=== PATIENT | male | born 1960 | race Caucasian/White ===

== ENCOUNTER 2017-07-06 02:51 | Emergency (ER) | payer OTHER ==
[~2017-07-06] VITALS: Ht 170.1 cm; Wt 99.8 kg
[~2017-07-06 02:51] MED LIST: ASPIRIN81 MG PO; ATORVASTATIN CA40 M1 PO; BACTRIM DS 8001 TA1 PO; COZAAR25 M1 PO; Cimetidine300 MG PO; EFFIENT10 M1 PO; HYDROCODONE BIT1 T11 PO; LISINOPRIL10 M1 PO; LISINOPRIL5 MG PO; METOPROLOL SUCC50 M1 PO; NICODERM C14 MG/241 T
[2017-07-06 03:29] LABS: HEMATOCRIT 45.2 % (42.0-52.0); HEMOGLOBIN 15.5 g/dl (14.0-18.0); MEAN CELL VOLUME 92.8 fl (80.0-94.0); MEAN CORPUSCULAR HGB 31.8 pg (27.0-31.0); MEAN CORPUSCULAR HGB CONC 34.3 g/dl (33.0-37.0); PLATELET COUNT AUTOMATED 228 10*3/uL (130-400); RED BLOOD COUNT 4.87 10*6/uL (4.50-5.90); RED CELL DISTRI WIDTH 13.3 % (0-14.5); WHITE BLOOD COUNT 12.6 10*3/uL (4.8-10.8)
[2017-07-06 03:39] LABS: ACT PARTIAL THROMBO TIME 20.1 SECONDS (20.8-31.5); INTERNATIONAL NORM RATIO 0.9 (2.0-3.5)
[2017-07-06 03:46] LABS: ALBUMIN 3.5 gm/dl (3.1-4.5); ALKALINE PHOSPHATASE 215 U/L (45-117); BUN 20 mg/dl (7-24); CHLORIDE 104 mmol/L (98-107); CPK 93 U/L (39-308); POTASSIUM 3.1 mmol/L (3.5-5.1); SGOT/AST 22 IU/L (3-35); SGPT/ALT 30 U/L (12-78); SODIUM 139 mmol/L (136-145); TOTAL PROTEIN 7.9 gm/dL (6.4-8.2)
[2017-07-06 03:48] LABS: CKMB 0.6 ng/ml (0.5-3.6)
[2017-07-06 03:49] LABS: ATYPICAL LYMPHS 6 % (0-0); PLATELET SUFFICIENCY NORMAL (NORMAL); TOTAL CELLS COUNTED 100 #CELLS
[2017-07-06 03:51] LABS: TROPONIN I < 0.015 ng/ml (<0.045)
== END 2017-07-06 05:51 | disposition short-term general hospital (02) ==
LOC: ED 02:51
PROVIDERS: Emergency Medicine Emergency Medical Services
DX: I61.9 Nontraumatic intracerebral hemorrhage, unspecified (principal); F17.200 Nicotine dependence, unspecified, uncomplicated; I25.10 Atherosclerotic heart disease of native coronary artery without angina pectoris; E78.5 Hyperlipidemia, unspecified; I10 Essential (primary) hypertension; I25.2 Old myocardial infarction; Z79.82 Long term (current) use of aspirin; Z79.899 Other long term (current) drug therapy; Z88.0 Allergy status to penicillin; Z88.6 Allergy status to analgesic agent

== ENCOUNTER → 2017-10-23 | Outpatient (CLI) | payer OTHER | END | disposition home or self-care (01) | LOC: US 12:48 | DX: M54.5 Low back pain (principal) ==

== ENCOUNTER 2017-10-25 04:56 | Emergency (ER) | payer OTHER ==
[~2017-10-25] VITALS: Ht 177.8 cm; Wt 90.7 kg
[2017-10-25] MEDS ORDERED: AMANTADINE HCL100 M1 PO (05:13)
[2017-10-25] MEDS ORDERED: AMLODIPINE BESY10 MG PO (05:14)
[2017-10-25] MEDS ORDERED: BACLOFEN20 M1 PO ×2 (05:14→05:22)
[2017-10-25] MEDS ORDERED: CAPOTEN12.5 MG PO (05:15)
[2017-10-25] MEDS ORDERED: VOLTAREN100 GM T (05:16)
[2017-10-25] MEDS ORDERED: NEURONTIN800 MG PO (05:17)
[2017-10-25] MEDS ORDERED: Fluoxetine20 MG/5 ML PO (05:17)
[2017-10-25] MEDS ORDERED: PANTOPRAZOLE SO40 MG PO (05:18)
[2017-10-25] MEDS ORDERED: LAXATIVE PEG 3510 GM PO (05:19)
[2017-10-25] MEDS ORDERED: TRAZODONE50 MG PO (05:20)
[2017-10-25] MEDS ORDERED: MELATONIN3 MG PO (05:20)
[2017-10-25] MEDS ORDERED: MAALOX ADVANCE355 M1 PO (05:21)
[2017-10-25 05:24] LABS: BASO # 0.1 10*3/uL (0.0-0.1); BASO % 1.1 % (0.0-1.0); EOS # 0.4 10*3/uL (0.0-0.4); EOS % 6.5 % (1.0-4.0); HEMATOCRIT 38.3 % (42.0-52.0); HEMOGLOBIN 12.7 g/dl (14.0-18.0); LYMPH % 34.9 % (27.0-41.0); MEAN CELL VOLUME 91.8 fl (80.0-94.0); MEAN CORPUSCULAR HGB 30.5 pg (27.0-31.0); MEAN CORPUSCULAR HGB CONC 33.2 g/dl (33.0-37.0); MEAN PLATELET VOLUME 10.1 fl (9.6-12.3); MONO # 0.7 10*3/uL (0.1-1.0); MONO % 11.6 % (3.0-9.0); NEUT # 2.6 10*3/uL (2.3-7.9); NEUT % 45.7 % (47.0-73.0); PLATELET COUNT AUTOMATED 185 10*3/uL (130-400); RED BLOOD COUNT 4.17 10*6/uL (4.50-5.90); RED CELL DISTRI WIDTH 13.1 % (0-14.5); WHITE BLOOD COUNT 5.7 10*3/uL (4.8-10.8)
[2017-10-25 05:40] LABS: ALBUMIN 3.2 gm/dl (3.1-4.5); ALKALINE PHOSPHATASE 178 U/L (45-117); BUN 13 mg/dl (7-24); CHLORIDE 105 mmol/L (98-107); CREATININE 0.63 mg/dL (0.70-1.30); POTASSIUM 3.7 mmol/L (3.5-5.1); SGOT/AST 13 IU/L (3-35); SGPT/ALT 21 U/L (12-78); SODIUM 140 mmol/L (136-145); TOTAL PROTEIN 7.1 gm/dL (6.4-8.2)
[2017-10-25 08:53] LABS: BILIRUBIN NEGATIVE (NEGATIVE); BLOOD 1+ (NEGATIVE); CLARITY CLEAR (CLEAR); COLOR YELLOW (YELLOW); GLUCOSE NEGATIVE (NEGATIVE); KETONE NEGATIVE (NEGATIVE); LEUKO ESTERASE NEGATIVE (NEGATIVE); NITRITE NEGATIVE (NEGATIVE); PH 5.5 (5.0-9.0); SPECIFIC GRAVITY 1.015 (1.005-1.030); UROBILINOGEN 0.2 E.U./dl (0.2-1.0)
[2017-10-25 08:59] LABS: MUCOUS TRACE
== END 2017-10-25 09:31 | disposition home or self-care (01) ==
LOC: ED 04:56
PROVIDERS: Emergency Medicine
DX: R10.9 Unspecified abdominal pain (principal); F17.200 Nicotine dependence, unspecified, uncomplicated; I25.10 Atherosclerotic heart disease of native coronary artery without angina pectoris; E78.5 Hyperlipidemia, unspecified; I10 Essential (primary) hypertension; I25.2 Old myocardial infarction; Z95.5 Presence of coronary angioplasty implant and graft; Z90.89 Acquired absence of other organs; Z79.899 Other long term (current) drug therapy; Z79.82 Long term (current) use of aspirin; Z88.0 Allergy status to penicillin; Z88.6 Allergy status to analgesic agent; Z86.73 Personal history of transient ischemic attack (TIA), and cerebral infarction without residual deficits

== ENCOUNTER → 2017-10-30 | Outpatient (CLI) | payer OTHER ==
[~2017-10-30] MED LIST changes: +AMANTADINE HCL100 M1 PO; +AMLODIPINE BESY10 MG PO; +BACLOFEN20 M1 PO; +CAPOTEN12.5 MG PO; +Fluoxetine20 MG/5 ML PO; +LAXATIVE PEG 3510 GM PO; +MAALOX ADVANCE355 M1 PO; +MELATONIN3 MG PO; +NEURONTIN800 MG PO; +PANTOPRAZOLE SO40 MG PO; +TRAZODONE50 MG PO; +VOLTAREN100 GM T
[2017-10-30 14:28] LABS: BILIRUBIN NEGATIVE (NEGATIVE); BLOOD 1+ (NEGATIVE); CLARITY CLEAR (CLEAR); COLOR YELLOW (YELLOW); GLUCOSE NEGATIVE (NEGATIVE); KETONE NEGATIVE (NEGATIVE); LEUKO ESTERASE NEGATIVE (NEGATIVE); NITRITE NEGATIVE (NEGATIVE); PH 5.5 (5.0-9.0); UROBILINOGEN 0.2 E.U./dl (0.2-1.0)
[2017-10-30 14:35] LABS: BASO # 0.1 10*3/uL (0.0-0.1); BASO % 0.9 % (0.0-1.0); EOS # 0.4 10*3/uL (0.0-0.4); EOS % 5.1 % (1.0-4.0); HEMATOCRIT 41.6 % (42.0-52.0); HEMOGLOBIN 14.3 g/dl (14.0-18.0); LYMPH # 2.3 10*3/uL (1.3-4.4); LYMPH % 32.7 % (27.0-41.0); MEAN CELL VOLUME 89.8 fl (80.0-94.0); MEAN CORPUSCULAR HGB 30.9 pg (27.0-31.0); MEAN CORPUSCULAR HGB CONC 34.4 g/dl (33.0-37.0); MEAN PLATELET VOLUME 10.6 fl (9.6-12.3); MONO # 0.6 10*3/uL (0.1-1.0); MONO % 8.1 % (3.0-9.0); NEUT # 3.7 10*3/uL (2.3-7.9); NEUT % 52.9 % (47.0-73.0); PLATELET COUNT AUTOMATED 223 10*3/uL (130-400); RED BLOOD COUNT 4.63 10*6/uL (4.50-5.90); RED CELL DISTRI WIDTH 13.2 % (0-14.5); WHITE BLOOD COUNT 6.9 10*3/uL (4.8-10.8)
[2017-10-30 14:48] LABS: BACTERIA 1+; EPITHELIAL CELLS 0-2; WBC 0-2 wbc/hpf (0-5)
[2017-10-30 14:56] LABS: BUN 15 mg/dl (7-24); CHLORIDE 102 mmol/L (98-107); POTASSIUM 3.7 mmol/L (3.5-5.1); SODIUM 140 mmol/L (136-145)
[2017-10-30 15:23] LABS: ACT PARTIAL THROMBO TIME 23.2 SECONDS (20.8-31.5); INTERNATIONAL NORM RATIO 0.9 (2.0-3.5)
== END | disposition home or self-care (01) ==
LOC: CARD 13:00 → LAB 13:02
PROVIDERS: Internal Medicine
DX: Z01.818 Encounter for other preprocedural examination (principal); R94.31 Abnormal electrocardiogram [ECG] [EKG]; I10 Essential (primary) hypertension; I61.9 Nontraumatic intracerebral hemorrhage, unspecified; Z98.890 Other specified postprocedural states

== ENCOUNTER 2018-04-23 18:28 | Emergency (ER) | payer OTHER, MEDICAID ==
[~2018-04-23] VITALS: Wt 88.5 kg
--- NOTE | ~2018-04-23 | EKG ---
[place], [place] ELECTROCARDIOGRAM REPORT NAME: DANIEL KEENAN UNIT #: [id number] ROOM: DOCTOR: EPIPHANY DRAFT REPORT BIRTHDATE: [birth year] [facility] Test Date: 2018-04-23 Test Time: 19:16:47 Pat Name: DANIEL KEENAN Department: ER Room: 2 Gender: M Oxyhydrogen Welder: Anais Bustillo : 1960 Requested By: IRMA CASPER Order Number: [id number] Reading MD: Gregor Delgadillo MD Measurements Intervals [place] Rate: 68 P: 47 ID: [id number] QRS: -4 QRSD: 116 T: 120 QT: 387 QTc: 412 Interpretive Statements Sinus rhythm Nonspecific intraventricular conduction delay Borderline low voltage, extremity leads Nonspecific T abnormalities, lateral leads Electronically Signed On 04-28-2018 4:19:34 PDT by Gregor Delgadillo MD CM:EKGRPT:ELECTROCARDIOGRAM REPORT [id number] IRMA BROWNE DRAFT REPORT IRMA CASPER MD
[2018-04-23] MEDS ORDERED: AMLODIPINE BESY10 MG PO (18:37)
[2018-04-23] MEDS ORDERED: BACLOFEN5 MG PO (18:37)
[2018-04-23] MEDS ORDERED: AMANTADINE HCL100 M1 PO (18:37)
[2018-04-23] MEDS ORDERED: ASPIRIN81 M1 PO (18:38)
[2018-04-23] MEDS ORDERED: CAPOTEN12.5 MG PO (18:38)
[2018-04-23] MEDS ORDERED: PROZAC40 M1 PO (18:38)
[2018-04-23] MEDS ORDERED: NEURONTIN600 MG PO (18:38)
[2018-04-23 19:24] LABS: BASO # 0.1 10*3/uL (0.0-0.1); BASO % 0.6 % (0.0-1.0); EOS # 0.3 10*3/uL (0.0-0.4); EOS % 2.6 % (1.0-4.0); HEMATOCRIT 39.4 % (42.0-52.0); HEMOGLOBIN 13.4 g/dl (14.0-18.0); LYMPH # 2.3 10*3/uL (1.3-4.4); LYMPH % 21.9 % (27.0-41.0); MEAN CELL VOLUME 92.1 fl (80.0-94.0); MEAN CORPUSCULAR HGB 31.3 pg (27.0-31.0); MEAN PLATELET VOLUME 10.2 fl (9.6-12.3); MONO # 0.8 10*3/uL (0.1-1.0); MONO % 7.6 % (3.0-9.0); NEUT # 6.9 10*3/uL (2.3-7.9); PLATELET COUNT AUTOMATED 225 10*3/uL (130-400); RED BLOOD COUNT 4.28 10*6/uL (4.50-5.90); RED CELL DISTRI WIDTH 14.8 % (0-14.5); WHITE BLOOD COUNT 10.3 10*3/uL (4.8-10.8)
[2018-04-23 19:33] LABS: INTERNATIONAL NORM RATIO 0.9 (2.0-3.5)
[2018-04-23 19:42] LABS: ALBUMIN 3.4 gm/dl (3.1-4.5); ALKALINE PHOSPHATASE 176 U/L (45-117); BUN 22 mg/dl (7-24); CHLORIDE 106 mmol/L (98-107); CREATININE 1.11 mg/dL (0.70-1.30); POTASSIUM 3.8 mmol/L (3.5-5.1); SGOT/AST 20 IU/L (3-35); SGPT/ALT 51 U/L (12-78); SODIUM 141 mmol/L (136-145); TOTAL PROTEIN 7.2 gm/dL (6.4-8.2)
[2018-04-23 19:51] LABS: ETHYL ALCOHOL < 3.0 mg/dl (<3); TROPONIN I < 0.015 ng/ml (<0.045)
== END 2018-04-24 01:57 | disposition short-term general hospital (02) ==
LOC: ED 18:28
PROVIDERS: Emergency Medicine Emergency Medical Services
DX: R56.9 Unspecified convulsions (principal); I25.10 Atherosclerotic heart disease of native coronary artery without angina pectoris; E78.5 Hyperlipidemia, unspecified; I10 Essential (primary) hypertension; F17.200 Nicotine dependence, unspecified, uncomplicated; Z86.73 Personal history of transient ischemic attack (TIA), and cerebral infarction without residual deficits; Z88.0 Allergy status to penicillin; Z88.6 Allergy status to analgesic agent; Z79.899 Other long term (current) drug therapy; Z79.82 Long term (current) use of aspirin

== ENCOUNTER → 2019-04-29 | Outpatient (CLI) | payer OTHER ==
[~2019-04-29] MED LIST changes: +ASPIRIN81 M1 PO; +BACLOFEN5 MG PO; +NEURONTIN600 MG PO; +PROZAC40 M1 PO
== END | disposition home or self-care (01) ==
LOC: US 02-26 09:30
DX: I10 Essential (primary) hypertension (principal); K76.0 Fatty (change of) liver, not elsewhere classified

== ENCOUNTER 2019-09-25 12:48 | Inpatient (IN) | payer OTHER ==
[~2019-09-25] VITALS: Ht 177.8 cm; Wt 90.7 kg
[2019-09-25 13:26] LABS: BASO # 0.1 10*3/uL (0.0-0.1); EOS # 0.2 10*3/uL (0.0-0.4); EOS % 2.3 % (1.0-4.0); HEMATOCRIT 50.4 % (42.0-52.0); HEMOGLOBIN 16.9 g/dl (14.0-18.0); LYMPH # 3.5 10*3/uL (1.3-4.4); LYMPH % 41.7 % (27.0-41.0); MEAN CELL VOLUME 95.6 fl (80.0-94.0); MEAN CORPUSCULAR HGB 32.1 pg (27.0-31.0); MEAN CORPUSCULAR HGB CONC 33.5 g/dl (33.0-37.0); MEAN PLATELET VOLUME 10.9 fl (9.6-12.3); MONO # 0.5 10*3/uL (0.1-1.0); MONO % 6.2 % (3.0-9.0); NEUT # 4.1 10*3/uL (2.3-7.9); NEUT % 48.7 % (47.0-73.0); PLATELET COUNT AUTOMATED 221 10*3/uL (130-400); RED BLOOD COUNT 5.27 10*6/uL (4.50-5.90); RED CELL DISTRI WIDTH 13.7 % (0-14.5); WHITE BLOOD COUNT 8.4 10*3/uL (4.8-10.8)
[2019-09-25 13:42] LABS: ALBUMIN 3.6 gm/dl (3.1-4.5); ALKALINE PHOSPHATASE 196 U/L (45-117); BUN 15 mg/dl (7-24); CHLORIDE 105 mmol/L (98-107); CREATININE 1.08 mg/dL (0.70-1.30); POTASSIUM 3.3 mmol/L (3.5-5.1); SGOT/AST 27 IU/L (3-35); SGPT/ALT 56 U/L (12-78); SODIUM 138 mmol/L (136-145); TOTAL PROTEIN 8.3 gm/dL (6.4-8.2)
[2019-09-25 13:43] LABS: ETHYL ALCOHOL < 3.0 mg/dl (<3)
--- NOTE | 2019-09-25 13:48 | NUR ---
PT GIVEN URINAL TO OBTAIN URINE SPECIMAN. PT STATES "I DO NOT HAVE TO GO RIGHT NOW BUT WILL SOON."
[2019-09-25 15:02] LABS: BILIRUBIN NEGATIVE (NEGATIVE); BLOOD TRACE-INTACT (NEGATIVE); CLARITY CLOUDY (CLEAR); COLOR YELLOW (YELLOW); GLUCOSE NEGATIVE (NEGATIVE); KETONE 1+ (NEGATIVE); LEUKO ESTERASE NEGATIVE (NEGATIVE); NITRITE NEGATIVE (NEGATIVE); UROBILINOGEN 0.2 E.U./dl (0.2-1.0)
[2019-09-25 15:08] LABS: URINE AMPHETAMINES < 1000 (1000ng/ml); URINE BARBITURATES < 200 (200ng/ml); URINE BENZODIAZEPINES < 200 (200ng/ml); URINE CANNABINOIDS (THC) > 50 (50ng/ml); URINE COCAINE < 300 (300ng/ml); URINE METHADONE < 300 (300ng/ml); URINE OPIATES < 300 (300ng/ml)
[2019-09-25 15:09] LABS: BACTERIA 1+; MUCOUS TRACE; RBC 0-2 rbc/hpf (0-2); WBC 0-2 wbc/hpf (0-5)
--- NOTE | 2019-09-25 15:09 | NUR ---
REPORT FROM AIDEN GIBSON PT RESTING IN ROOM AT BEDSIDE NO DISTRESS NOTED
[2019-09-25 15:11] LABS: URINE PHENCYCLIDINE < 25 (25ng/ml)
--- NOTE | 2019-09-25 16:13 | NUR ---
PT RESTING IN BED IN VIEW OF NURSES DESK NO DISTRESS NOTED CALL LIGHT IN REACH
--- NOTE | 2019-09-25 16:38 | NUR ---
PSYCHIATRIC ASSESSMENT: MET WITH CLIENT TO ASSESS FOR NEEDS AND SUICIDE RISK, CLIENT REPORTS THAT HE HAS BEEN VERY DEPRESSED SINCE JUN 2017, WHEN HE HAD A STROKE, WHICH AFFECTED HIS LEFT SIDE, HE HAS NO USEOF HIS LEFT ARM AND HE HAS A BRACE ON HIS LEG, HE WALKS WITH A CANE. 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 HE REPORTS SUICIDAL THOUGHTS WITH A PLAN TO USE A KNIFE. HE SAID THAT LAST NIGHT HE GOT VERY UPSET AND HE COULDNT TAKE IT , HE STARTED THROWING THINGS AND HIS WAS AFRAID SO SHE CALLED THE POLICE AND THEY CAME AND TALKED TO HIM, TODAY SHE MADE HIM COME TO THE ER. HE HAS NO PREVIOUS MENTAL HEALTH CARE, OUTPATIENT OR INPATIENT, HE IS PRESCRIBED MEDICAL MARIJUANA BY HIS PCP, DR Harjit CANNON. HE SAID THIS HELPS HIM TO CALM DOWN, HE IS REPRESENTLY OUT OF IT. HE SAID HE IS ANXIOUS, DENIES ANY NONE EVIDENT ANY SENSORY DISTURBAND OR DELUSIONS. CLIENT SAID HE IS WORRIED ABOUT HIS MARRIAGE AND DOESNT KNOW IF THEY ARE GOING TO MAKE IT, THEY HAVE BEEN 23 YEARS. HE REPORTS HE FEELS THAT HE IS LOSING EVERYTHING. HIS SLEEP IS POOR AND APPETITE IS GOOD. HE HAS CHILDREN AT HOME, A SON AGE 22, DAUGHTERS AGE 20, 15 AND 5. HE IS HIS OWN PERSON. WE TALKED AT LENGTH AND HE IS WILLING TO BE ADMITTED TO A MENTAL HEALTK UNIT. I DISCUSSED WITH DR MORENO AND HIS NURSE. I WILL REFER HIM TO INPATIENT PSYCH.
[2019-09-25 16:53] VITALS: BP 161/99
--- NOTE | 2019-09-25 16:53 | NUR ---
TELEPHONE CALL TO THE [facility] HERE, MADE THE REFERRAL AND WILL WAIT FOR THEM TO CALL ME BACK WITH THEIR DECISION.
--- NOTE | 2019-09-25 16:56 | NUR ---
PT REQUESTED SOMETHING FOR PAIN DR MORENO NOTIFIED
--- NOTE | 2019-09-25 17:10 | NUR ---
[facility] IS GOING TO ACCEPT PT THEY WILL BE DOWN TO GET PT IN THE NEXT 20 MIN OR SO
--- NOTE | 2019-09-25 17:25 | NUR ---
DALLAS Felecia NURSE HERE TO ELECTRONIC TESTER PT.
[2019-09-25] MEDS ORDERED: EFFEXOR XR150 M1 PO (17:26)
[2019-09-25] MEDS ORDERED: DEPAKOTE DR500 MG PO (17:26)
--- NOTE | 2019-09-25 17:32 | NUR ---
KEENANDANIEL KELLER a 59 year old M admitted via wheel chair from the EMERGENCY ROOM as a voluntary admission. Arrived on unit at 1732. ALLERGIES: IBUPROFEN, PCN. Vital signs are: [id number] 138/100. The client signed the following forms with stated understanding: Authorization For The Release of Medical Information, Clothing List, Consent to Voluntary Admission and Hospitalization, Consent and Release Forms/Receipt of Rights, Acknowledgement of Advance Directive Information, Behavioral Health Consent Form, and Informed Consent of Medications. Admitted under the services of [facility]. A search was conducted and hazardous articles were removed. Client was oriented to the unit. DALLAS RIZZO
--- NOTE | 2019-09-25 17:47 | NUR ---
SPOKE WITH DR CANNON AT [phone], RE: PT ADMISSION AND MEDICAL MEDS NEEDING COMPLETED. HOME MEDS REVIEWED WITH AND VERBAL ORDERS RECEIVED TO CONTINUE MEDS. WITNESSED BY 2ND RN WON JEAN-BAPTISTE. NO FURTHER ORDERS AT THIS TIME.
[2019-09-25 17:49] VITALS: BP 137/88
[2019-09-25 18:20] VITALS: BP 137/88
[2019-09-25 20:40] VITALS: BP 138/100
--- NOTE | 2019-09-25 21:01 | NUR ---
PATIENT COMPLAINING OF ALL OVER PAIN, RATING 3/10. PRN TYLENOL 650MG GIVEN PO AT THIS TIME.
--- NOTE | 2019-09-25 21:33 | NUR ---
DR. CANNON NOTIFIED OF MANUAL BP 138/100. EVENING BP MEDICATION GIVEN. VERBAL ORDER: RECHECK BP IN 1 HR.
[2019-09-25 21:45] VITALS: BP 126/82
--- NOTE | 2019-09-25 21:45 | NUR ---
RECHECK BP MANUAL 126/82.
--- NOTE | 2019-09-25 22:01 | NUR ---
NO FURTHER COMPLAINTS OF PAIN. PATIENT RESTING IN BED WITH EYES CLOSED. PRN TYLENOL EFFECTIVE.
--- NOTE | 2019-09-26 05:37 | NUR ---
PATIENT SLEPT 8 HOURS OF INTERRUPTED SLEEP THROUGHOUT SHIFT. Q 15 MINUTE CHECKS MAINTAINED. 24 HR chart check completed.
[2019-09-26 06:26] LABS: HEMATOCRIT 48.1 % (42.0-52.0); HEMOGLOBIN 15.9 g/dl (14.0-18.0); MEAN CELL VOLUME 96.8 fl (80.0-94.0); MEAN CORPUSCULAR HGB CONC 33.1 g/dl (33.0-37.0); MEAN PLATELET VOLUME 11.3 fl (9.6-12.3); PLATELET COUNT AUTOMATED 198 10*3/uL (130-400); RED BLOOD COUNT 4.97 10*6/uL (4.50-5.90); RED CELL DISTRI WIDTH 13.7 % (0-14.5); WHITE BLOOD COUNT 8.7 10*3/uL (4.8-10.8)
[2019-09-26 06:33] LABS: ALBUMIN 3.3 gm/dl (3.1-4.5); BUN 17 mg/dl (7-24); CHLORIDE 106 mmol/L (98-107); CHOLESTEROL 248 mg/dL (<200); CREATININE 0.85 mg/dL (0.70-1.30); POTASSIUM 3.4 mmol/L (3.5-5.1); SGOT/AST 22 IU/L (3-35); SGPT/ALT 48 U/L (12-78); SODIUM 139 mmol/L (136-145); TOTAL PROTEIN 7.4 gm/dL (6.4-8.2); TRIGLYCERIDES 466 mg/dl (<150)
[2019-09-26 06:42] LABS: ALKALINE PHOSPHATASE 177 U/L (45-117); HDL CHOLESTEROL 32 mg/dl (40-60)
[2019-09-26 06:54] LABS: TOTAL CELLS COUNTED 100 #CELLS
[2019-09-26 06:55] LABS: PLATELET SUFFICIENCY NORMAL (NORMAL)
[2019-09-26 07:31] LABS: VITAMIN D, 25-HYDROXY 29.9 ng/mL (30-100)
[2019-09-26 08:01] VITALS: BP 154/78
--- NOTE | 2019-09-26 09:39 | NUR ---
DR. CANNON NOTIFIED OF POTASSIUM LEVEL, VERBAL ORDER FOR POTASSIUM 40MEQ NOW AND BMP IN AM. UPDATED ON MORNING BP, ROUNTINE MEDICATIONS GIVEN.
--- NOTE | 2019-09-26 09:46 | NUR ---
PATIENT COMPLAINING OF LEFT LOWER EXTREMITY PAIN, RATING 5/10. PRN TYLENOL 650MG PO GIVEN AT THIS TIME.
--- NOTE | 2019-09-26 10:46 | NUR ---
PATIENT IN DINING ROOM PARTICIPATING IN GROUP SESSION, NO FURTHER VOICED COMPLAINTS OF PAIN. PRN TYLENOL EFFECTIVE.
--- NOTE | 2019-09-26 12:48 | NUR ---
DR. CANNON ON UNIT TO ASSESS PATIENT.
--- NOTE | 2019-09-26 12:49 | NUR ---
AM GROUP/EXERCISE/MUSIC/COLOR BY NUMBER PT ATTENDED AND PARTICIPATED IN ALL GROUP ACTIVITY. PT DID COMPLAIN ABOUT HIP PAIN AND MOVED TO A MORE COMFY CHAIR TO REST LEG. PT OBSERVED AND SANG ALONG TO MUSIC (ESPECIALLY HERMAN ANDRE). PT EXPRESSED NO S.I. OR ANGRY OUTBURSTS AT THIS TIME. PT WILL CONTINUE TO ATTEND AND PARTICIPATE IN FUTRUE GROUP SESSIONS.
--- NOTE | 2019-09-26 13:07 | NUR ---
psychosocial hx completed this date.
--- NOTE | 2019-09-26 13:27 | NUR ---
PT ON UNIT, ADVISED THAT PT IS USED TO WALKING AROUND AT HOME WITH HIS CANE AND ONLY USING THE WHEELCHAIR WHEN NECESSARY. PT IS UNABLE TO USE A WALKER D/T LEFT SIDED PARALYSIS. PT REQUESTING TO USE CANE ON UNIT. SPOKE WITH CHARGE NURSE AND U DIRECTOR, ADVISED OF SITUATION. PER DIRECTOR LONG PT IS NOT HAVING VIOLENT OUTBURSTS AND CANE REAMINS LOCKED UP WHILE NOT IN USE PT MAY AMBULATE THROUGHOUT UNIT WITH CANE WITH STAFF PRESENT. AND PT UPDATED.
--- NOTE | 2019-09-26 17:42 | NUR ---
P: DEPRESSED MOOD I: ONE ON ONE FOR EMOTIONAL SUPPORT, ENCOURAGEMENT TO ASSIST WTIH ACTIVITIES OF HILDA LIVING. R: EFFECTIVE. PATIENT IS ALERT TO PERSON, PLACE, TIME AND SITUATION; ABLE TO VOICE NEEDS. LT MEMORY DEFICITS, SHORT TERM MEMORY GAPS. MOOD IS DEPRESSED. DENIES ANY HALLUCINATIONS, DELUSIONS, HI/SI. RECEIVED TYLENOL FOR PAIN. MEDICAITON COMPLIANT WITH EDUCATION PROVIDED. Q 15 MINUTE SAFETY CHECKS. INTERACTIVE WITH STAFF AND PARTICIPATES IN GROUP SESSEION. PATIENT ABLE TO USE CANE WITH STAFF PRESENT. 1 PERSON ASSIST WITH ACTIVITIES OF DAILY LIVING, CONTINENT OF BOWEL AND BLADDER. SET UP FOR MEALS, INTAKES ARE GOOD WITH ADEQUATE FLUIDS. P: CONTINUE TO MONITOR FOR SUICIDAL IDEATIONS, MOOD, PAIN MANAGEMENT AND ENCOURAGE INDEPENDENCE OF ACTIVITIES OF DAILY LIVING. PROVIDE ONE ON ONE FOR EMOTIONAL SUPPORT, ENCOURAGE GROUP PARTICIPATION AND CONTRACT FOR SAFETY WHEN NEEDED.
--- NOTE | 2019-09-26 18:04 | NUR ---
PATIENT COMPLAINING OF LEFT EXTREMITY PAIN, RATING PAIN 5/10. PRN NORCO 5/325MG PO GIVEN AT THIS TIME.
[2019-09-26 20:14] VITALS: BP 136/81
--- NOTE | 2019-09-27 00:19 | NUR ---
24 HR chart check completed.
--- NOTE | 2019-09-27 05:35 | NUR ---
Patient slept approx. 7 hours throughout shift. Q 15 minute safety checks continued and maintained.
--- NOTE | 2019-09-27 06:20 | NUR ---
Medicated with Leslie po prn for c/o pain in shoulder,hip,and leg rating 10/10. Will monitor effectiveness.
[2019-09-27 06:41] LABS: BUN 13 mg/dl (7-24); CHLORIDE 107 mmol/L (98-107); CREATININE 0.71 mg/dL (0.70-1.30); POTASSIUM 3.8 mmol/L (3.5-5.1); SODIUM 141 mmol/L (136-145)
[2019-09-27 07:53] VITALS: BP 137/80
--- NOTE | 2019-09-27 08:00 | NUR ---
Treatment Plan meeting was held with Dr. Baird, RC Joiner, RN, AT, ELECTRO MECHANICAL SOLAR TECHNICIAN-S and Director University. Plan for discharge Fri/ with return home.
--- NOTE | 2019-09-27 09:27 | NUR ---
ON UNIT FROM PODIATRY TO SEE PT AT THIS TIME.
--- NOTE | 2019-09-27 14:40 | NUR ---
Occupational therapy orders received and OT evaluation completed in full on floor three. Patient precautions include fall risk, WC/cane use, L sided hemiparesis, impulsive, and L KAFO. Per OT evmagy, OT recommends patient return home with a follow up with an floor covering printer for his KAFO. Please see OT eval for further details of L KAFO. Patient complexity is high, 44475. Thank you for the referral. Court Steiner OTR/L
--- NOTE | 2019-09-27 14:40 | NUR ---
PATIENT RETURN WITH NURSING STAFF AND SECURITY FROM RADIOLOGY. MENTAL HEALTH WORKER REPORTED THAT PATIENT HAS SKIN TEAR ARE LEFT FOREARM. PATIENT REPOSITION LEFT ARM BY USING RIGHT HAND AND BUMPED ARM ON WHEELCHAIR. PATIENT IS AWARE, DR NAYAK NOTIFIED WITH NEW TREATMENT ORDER AND ACCOUNT DEVELOPER NOTIFIED.
--- NOTE | 2019-09-27 14:40 | NUR ---
Pt returned from ultrasound, mental health worker who escorted pt off the unit to and from ultrasound reported that while pt was re-positioning his left arm with his right hand, pt sustained a small skin tear measuring 0.2cm x 0.3cm x <0.1cm to the left forearm. No drainage noted. No foul odor noted. Surrounding skin is red but intact. Pt denies pain. Pt reports he often picks at his skin. Area cleansed, dry dressing applied. Pt's on unit during visitation and aware. Dr. Black, resident physician working with Dr. Olivia notified with wound care orders received.
--- NOTE | 2019-09-27 15:58 | NUR ---
PATIENT HAS WHITE, SCALY DRY SKIN TO LEFT ANKLE, AREA IS PINK AND BLANCHABLE. PATIENT WEARS LEG BRACE TO EXTREMITY. THERAPY EXPRESSED CONCERNS OF BRACE NOT FITTING PROPERLY. WOUND CARE NURSE CONSULTED ON PREVENTATIVE TREATMENT. DR. RAMOS NOTIFIED AND TREATMENT ORDERS IN PLACE FOR SKIN PROTECTION.
--- NOTE | 2019-09-27 16:44 | NUR ---
PHYSICAL THERAPY Lenny completed high level of complexity 03946 full report to follow recomend home with f/u with home health and financial accounting analyst for brace. Pt's LLE/foot not fitting down into KAFO red/pink area along lateral malleoli blanchable with callus area. Spoke w Francy not normally pink or red but did have callus. states brace not fitting well at home but that she would put on and pt wearing t/o day. Has had brace since 2017 last seen by/worked with therapy over a year ago. Spoke with [place] financial accounting analyst Fortunato Guardado over phone explaining situation. Feels it would be better to follow up as an outpatient due to how old brace is and recomending if fit issue to wear brace for transfers but not to amb/wear t/o day if skin issues a problem as well as not adding padding to skin under brace as will just increase pressure. Spoke with Francy reg above she will be in today and will look at ankle explained situation and given name/phone number of financial accounting analyst for follow up as outpatient.Spoke w [facility] nurse Jenny [place]inas financial accounting analyst recomendation. Spoke w Annalee conservation planner to contact (per her request) for update on discharge. Loida Schaefer PT
--- NOTE | 2019-09-27 17:50 | NUR ---
P: DEPRESSED MOOD I: ONE ON ONE FOR EMOTIONAL SUPPORT, ENCOURAGED TO PARTICIPATE IN GROUP SESSION. R: EFFECTIVE. PATIENT IS ALERT TO PERSON, PLACE, TIME AND SITUATION; ABLE TO VOCIE NEEDS. MOOD IS DEPRESSED WITH FLAT AFFECT. DENIES ANY HALLUCINATIONS, DELUSIONS, HI/SI. PATIENT RECIEVED PAIN MEDICAITONS EARLY THIS MORNING AND TAKING ROUTINE MEDICATION FOR PAIN MANAGEMENT. MEDICATION COMPLAINT WITH EDUCATION PROVIDED. Q 15 MINUTE SAFETY CHECKS MAINTAINED. INTERACTIVE WITH STAFF AND OTHER PATIENTS. PARTICIPATED IN GROUP SESSION. 1-2 PERSON ASSIST WITH ACTIVITIES OF DAILY LIVING, CONTINENT OF BOWEL AND BLADDER, SET UP FOR MEALS, INTAKES ARE GOOD WITH ADEQUATE FLUIDS. UP IN WHEELCHAIR. CONTINUE TO MONITOR FOR AGGRESSION, SUICIDAL IDEATIONS. PROVIDE ONE ON ONE FOR EMOTIONAL SUPPORT, ENCOURAGED TO PARTICIPATE IN GROUP SESSIONS, CONTRACT FOR SAFETY NEEDED. P:
--- NOTE | 2019-09-27 17:53 | NUR ---
PM GROUP/EXERCISE/BEADING/LEAISURE PT IN ATTENDANCE AND PARTICIPATED IN EXERCISE BUT SOON TAKEN DOWN FOR AN ULTRA SOUND. PT DID NOT RETURN TO DAYROOM UNTIL GROUP ALMOST PVER. PT WILL CONTINUE TO ATTEND AND BE ENCOURAGED TO PARTICIPATE IN FUTURE GROUP SESSIONS.
[2019-09-27 20:00] VITALS: BP 114/80
--- NOTE | 2019-09-27 20:43 | NUR ---
EVENING/STORY PT IN ATTENDNACE AND PARTICIPATED IN STORY DISCUSSION. PT PLEASANT AND ON TASK WITH NO S.I. OR ANGRY OUTBURSTS EXPRESSED AT THIS TIME. PT WILL CONTINUE TO ATTEND ANDPARTICIPATE IN FUTRUE GROUP SESSION TO BEST OF PT ABILITY.
--- NOTE | 2019-09-27 23:17 | NUR ---
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 "I CAN'T DO NONE OF THAT NOW" "I CAN'T DO ANYTHING, MY IS GONNA LEAVE ME BECAUSE I DON'T DO ANYTHING" SPOKE WITH PT ABOUT HOW TO CHANGE THE PATTERN HE HAS BECAME INVOLVED IN. PT STATED HE IS ANGRY BECAUSE HE CAN'T MOVE HIS LEFT SIDE. DISCUSS THE THINGS HE STILL CAN DO, WHAT HE IS CAPABLE OF. PT ENCOURAGED TO THINK ABOUT POSITIVES HE CAN HOLD ONTO INSTEAD OF THE NEGATIVE. PT STARTED TO TALK ABOUT MODIFICATIONS OF HOW TO HOLD A FISHING POLE, AND MOVING THE GRILL SOMEWHERE TO HELP HIS COOK MORE. P: PT TO THINK ABOUT GOALS OF IMPROVEMENTS HE CAN DO FOR HIMSELF, HOW TO TALK WITH HIS AND ATTEMPT TO BE A "TEAM" "LIKE THEY USED TO BE". NO SIHI OR DELUSIONS. PT AWARE OF NEED OF CHANGE AND STATED THAT BEING HERE HAS HELPED HIM TO SEE HOW HE NEEDS TO CHANGE HIS THOUGHT PROCESS. CONTINUE WITH 15 MIN CHECKS PROMOTE INDEPENDANCE
--- NOTE | 2019-09-28 05:28 | NUR ---
PT SLEPT 4 HOURS BROKEN SLEEP
--- NOTE | 2019-09-28 06:50 | NUR ---
Pt complaint of pain to left side of hip and head, stated he felt achey this am. given norco per request
--- NOTE | 2019-09-28 07:00 | NUR ---
DANIEL KEENAN [id number] Please refer to the physician's history and physical for past medical history, comorbid conditions, and allergies. Diagnosis: MAJOR DEPRESSION RECURRENT SEVERE Efe Score: 19,LOW OR NO RISK WOUND DESCRIPTIONS: Wound Number: 1 Location of the wound: left forearm Type of wound: skin tear Thickness: Partial Size: 0.4cm x 0.8cm x <0.1cm Tunneling: none Undermining: none Sinus Tract: none Presence of Exudate: none Amount: None Color: Red Odor: None Periwound Skin Appearance: Normal Wound edges: approximated Pain (associated with wound): none at time of assessment How does patient state this happened? pt states that he is unsure how this happened but noticed it upon his return from thyroid testing Left ankle and doral apsect of left foot red and blanchable areas noted at time of assessment. No open areas noted at time of assessment, no drainage noted at time of assessment Surface the patient is resting on: Proform SKIN PREVENTION RECOMMENDATION: 1. Pressure redistribution support surface as appropriate 2. Elevate heels 3. Remove boots/TEDS every shift and reapply 4. Head of bed 30 degrees as tolerated 5. Assess nutrition and hydration 6. Manage moisture 7. Avoid the use of containment devices while in bed 8. Use absorptive products on surfaces limit layers of linens on bed 9. Turn and reposition every 1-2 hours in bed and every 1 hour in chair as tolerated 10. Weight shifts every 15 minutes while up in chair 11. Offloading with pillows or device to keep heels elevated off bed 12. Monitor skin at least every shift 13. Inspect under medical devices twice a day WOUND TREATMENT RECOMMENDATIONS: Continue skin tear guidelines to left forearm. Clarify dressing change orders: Apply sureprep to left ankle and dorsal aspect of left foot BID allow time to dry then cover with optifoam gentle. Heel raiser pro boots to bilateral heels while in bed for prevention.
--- NOTE | 2019-09-28 07:50 | NUR ---
OT NOTE Patient was supine in bed upon arrival and was agreeable to OT treatment. Nursing, rehab nursing tech, and PT were all present in room. Patient presented with a left lateral ankle foam bandage due to having a ankle sore. Nursing and the patient were provided with education on donning the KAFO brace for functional transfers and removing during seated activity and at rest to maximize patient safety and prevent further left lateral ankle breakdon. The nurse, Mahi, and the patient both verbalized a good understanding. Patient performed bed mobility with Min Ax2 to EOB, where his dynamic seated balance was challenged during scooting. Patient required Max A to don/doff brace during activity and was encouraged to participate in completing the straps with fair carryover. Patient completed further lower body dressing tasks seated EOB. Patient stating "see I can't do this", with encouragement and verbal cues for prashanth-dressing techniques, patient was able to complete with Mod A. With the KAFO on, patient used his SC and completed EOB to chair transfers with Min A-CGAx2 with cues for safety and safe hand placement. When seated in the chair, the KAFO was removed and placed on the bed. Patient's SC was returned to nursing to be put away. Patient demonstrated independent wheelchair mobility into the hallway to the dining room. Prior to breakfast in the dining room, patient completed a handwashing activity to the left hand with Min A and PROM to the digits. OT treatment concluded with the patient seated his wheelchair at the dining room table with milleiu in room. Patient to continue with POC. LIO Landeros/Negra
--- NOTE | 2019-09-28 07:50 | NUR ---
PHYSICAL THERAPY Pt in bed spoke with nurse Mahi PHILLIPS pt has small dressing to L lateral ankle unable to visualize. Ed/updated nurse on concerns for fit of KAFO due to limited ankle ROM, Shoe (laces out for safety) and prior use of hospital sock. Pt now wearing own socks. Ed on use of brace for standing/OOB activities but when sitting in w/c or lying in bed brace off to limit pressure at L lateral ankle. Ed on don/doff of brace in sitting. Supine to sit min assist x 1 sitting at EOB independent. Donned KAFO LLE STS cg x 1 bed to w/c tranfers with cane cg x 1 once pt in w/c removed KAFO shoe back on L foot for protection and positioning. Leg rest adjuted for comfort and alignment per pt "comfortable" pt states his hip had "really been hurting with sitting with the brace on" Nurse present t/o ed to call dept for assist and will keep working w pt for transfers/ROM/strengthing. Pt able to self propel w/c to dining area 100 ft with occ verbal cues. Will follow Loida Schaefer PT
--- NOTE | 2019-09-28 08:00 | NUR ---
Treatment Plan meeting was held with RC Joiner, RN, AT, MARINE GEOLOGIST-S and Hot Plate Plywood Press Operator. Plan for discharge Friday/Friday per Marisel. Pt. will return home at this point.
--- NOTE | 2019-09-28 10:07 | NUR ---
Dr. Black notified of wound care recommendations.
--- NOTE | 2019-09-28 11:41 | NUR ---
CLAUDIA GROUP/EXERCISE AND DONG PT ATTENDED MORNING GROUP THERAPY AND PARTICIPATED IN ALL ACITIVITIES TO THE BEST OF HIS ABILITY. PT EXPRESSED NO SUICIDAL IDEATIONS DURING GROUP BUT DID STATE, "MY IS SICK OF ME. SHE'S HAD ENOUGH"
--- NOTE | 2019-09-28 15:18 | NUR ---
Earlier this afternoon, met with pt individually. Discussed pt's life stressors since his CVA. Pt spoke of the strain that his lasting impairments have had on his marriage and family. Pt admits to becoming frustrated when he is unable to do something and then lashing out at his and children. Discussed the unwanted reinventing of himself. Pt voiced recognition that his has "too much on her" and his want to take some of the burden from her. Pt denies any previous counseling but is willing to participate. Educated pt about counseling. Pt voiced hope that his would want counseling as well. Offered to schedule a family meeting. Pt stated that he would like that and voiced appreciation.
--- NOTE | 2019-09-28 15:33 | NUR ---
PM GROUP PT DID NOT ATTEND AFTERNOON GROUP THERAPY. PT WAS IN BED RESTING
--- NOTE | 2019-09-28 17:43 | NUR ---
P: DEPRESSED MOOD I: 1:1 PROVIDED FOR THERAPEUTIC COMMUNICATION. ENCOURAGED MEDICATION COMPLIANCE. ENCOURAGED INCREASED INTERACTIONS WITH PEERS. ENCOURAGED ATTENDANCE AND PARTICIPATION IN GROUPS. MONITORED BEHAVIORS WITH Q15 MINUTE SAFETY CHECKS. R: MEDICATION COMPLAINT. PT OPEN TO COMMUNICATING WITH PTS HOWEVER DID NOT INTERACT MUCH WITH PEERS. PT ATTENDED AND PARTICIPATED IN GROUP TODAY. NO ADVERSE BEHAVIORS NOTED. P: CONTINUE TO OFFER 1:1 FOR THERAPEUTIC COMMUNICATION. CONTINUE TO ENCOURAGE MEDICATION COMPLIANCE. CONTINUE TO ENCOURAGED INTERACTIONS WITH PEERS AND STAFF AND ATTENDANCE AND PARTICIAPTION IN GROUPS. CONTINUE TO MONITOR BEHAVIORS WITH Q15 MINUTE SAFETY CHECKS. SEE [facility] FLOWSHEET FOR SPECIFIC MONITORING.
[2019-09-28 19:36] VITALS: BP 126/75
--- NOTE | 2019-09-28 21:58 | NUR ---
Patient alert and oriented to person,place,time and situation. Mood depressed. Patient denies SI/HI at this time. No overt s/s of any responding to internal stimuli noted. Patient wrote on paper some postive things he likes about himself. Patient compliant with HS medications without any difficulty. Provided 1:1 for therapeutic communication and emotional support. Plan to continue to encourage medication compliance. Also continue to provide emotional support and therapeutic communication. Will continue to monitor moods/behaviors. Q 15 minute safety checks continued and maintained. See [facility] flowsheet for further documentation.
--- NOTE | 2019-09-29 00:16 | NUR ---
24 HR chart check completed.
--- NOTE | 2019-09-29 05:58 | NUR ---
Patient slept approx. 7 hours throughout shift. Q 15 minute safety checks continued and maintained.
[2019-09-29 07:59] VITALS: BP 135/69
--- NOTE | 2019-09-29 08:20 | NUR ---
PHYSICAL THERAPY Patient seen this am for therapy visit and was supine in bed upon therapist arrival. Patient identified by name / and reports 5/10 chronic L hip pain. Patient transfers supine to sit EOB, MOD A x 1 and presented with increased L LE Gastroc / Hamstring tightness. Patient tolerated prolonged L LE stretching to increase ROM and requires use of L LE KAFO for all transfers ONLY. Patient needs therapist assist to Don / Doff KAFO and completed sit to stand / SPT to w/c with MIN/EDGE GLUE MACHINE TENDER x 1. Patient was very unsteady during pivot phase of transfer and can be a little impulsive at times, demonstrating POOR safety awareness. Patient also very deconditioned with quick onset of fatigue and would greatly benefit from SNF to improve strength, safe transfers / mobility to prevent increased risk of falls. Patient remained in w/c and transported to activity room for a late breakfast under [facility] staff Supervision. Will continue per POC as tolerated, total treatment time 20 minutes. Cory Sánchez, BRANCH MAKER
--- NOTE | 2019-09-29 10:15 | NUR ---
PHYSICAL THERAPY Spoke with FINANCIAL SERVICES EDUCATION CONSULTANT working with pt regarding progress and transfers, presently min assist x 1 with decreased balance, only using LLE KAFO with transfers not ambulating at this time due to fit and skin issues L lateral ankle. Initally pt only to be here a few days and looking to follow up w HH vs outpatient regarding brace however now pt likely not being discharged until next week. Due to brace pt has had limited activity with decline in function and tolerance to activity. Spoke with land use planner on U feel pt would benefit from SNF vs Inpatient rehab stay for brace assessment by bus operator and further PT for amb, balance, stair training to improve functional independence and overall mobility at home. Loida Schaefer PT
--- NOTE | 2019-09-29 10:54 | NUR ---
Spoke with Elian Schaefer PT about the possibility of pt discharging to SNF. Met with pt and discussed SNF. Pt is agreeable if the NF can be local to [place] and will allow his use of medical marijuana. Will also plan to discuss with pt's , per pt's request.
--- NOTE | 2019-09-29 11:41 | NUR ---
AM GROUP PT WAS PRESENT AT THE START OF GROUP BUT LEFT TO LAY DOWN STATING, "MY HIP PAIN IS REAL BAD."
--- NOTE | 2019-09-29 11:45 | NUR ---
Family meeting scheduled tomorrow at 12:30 with pt and his Francy.
[2019-09-29 12:06] LABS: NEURONTIN (GABAPENTIN) 4.4 ug/mL (4.0-16.0)
--- NOTE | 2019-09-29 15:42 | NUR ---
PM GROUP PT ATTENDED AFTERNOON GROUP THERAPY AND PARTICIPATED IN ALL ACITIVITIES. PT WAS TALKATIVE BUT ON TASK. PT EXPRESSED NO SUICIDAL IDEATIONS WHILE IN GROUP
--- NOTE | 2019-09-29 16:24 | NUR ---
Patient was seen by occupational therapist on 09/27/2019 for an OT evaluation. At that time, OT recommended patient return home with HH SN, OT, and PT with continued assist. Secondary to the patient's left KAFO not fitting properly, patient would benefit from a SNF or rehab facility stay to further address and maximize his safety and independence with ADLs, mobility, and transfers. Court Steiner, OTR/L
--- NOTE | 2019-09-29 16:30 | NUR ---
PHYSICAL THERAPY Multiple discussions throughout the day. Spoke with Anika wound care nurse 9:00 regarding pad on L ankle per her/MD recomendation to protect skin to leave in place to protect skin. Per phone conversation w software engineer developer 08:30 only a major concern if brace being left on t/o the day. Presently only using for transfers and taking off. Discussed with Kristie interstate planner reg SNF/rehab rather than home also to look into if software engineer developer able to see pt on BHU if covered. Per software engineer developer would not be able to come out until next week. Met with pt and regarding all of the above and both in agreement for rehab given present situation. Spoke with Mahi/nurse and Pt reg shoes agreeable to have pt wear velcro shoes during day with skin checks every 2 hrs as new shoes and then can replace shoelace in regular shoes to wear w brace and use with transfers. Ed nsg only using brace with white tennis shoes with laces and when off to go to black velcro shoes. Also concersn with LLE on leg rest as with black shoes smaller profile leg tends to ER and rest on metal part of w/c discusse w nsg and allowed to use towel roll for pressure relief and posittioning as well as ed pt. Will cont to follow and monitor Loida Schaefer PT
--- NOTE | 2019-09-29 16:51 | NUR ---
P: DEPRESSED MOOD I: 1:1 PROVIDED FOR THERAPEUTIC COMMUNICATION. ENCOURAGED MEDICATION COMPLIANCE. ENCOURAGED INCREASED INTERACTIONS WITH PEERS. ENCOURAGED ATTENDANCE AND PARTICIPATION IN GROUPS. MONITORED BEHAVIORS WITH Q15 MINUTE SAFETY CHECKS. R: MEDICATION COMPLAINT. PT OPEN TO COMMUNICATING WITH PTS HOWEVER DID NOT INTERACT MUCH WITH PEERS. PT ATTENDED AND PARTICIPATED IN GROUP TODAY. NO ADVERSE BEHAVIORS NOTED. P: CONTINUE TO OFFER 1:1 FOR THERAPEUTIC COMMUNICATION. CONTINUE TO ENCOURAGE MEDICATION COMPLIANCE. CONTINUE TO ENCOURAGED INTERACTIONS WITH PEERS AND STAFF AND ATTENDANCE AND PARTICIAPTION IN GROUPS. CONTINUE TO MONITOR BEHAVIORS WITH Q15 MINUTE SAFETY CHECKS. SEE [facility] FLOWSHEET FOR SPECIFIC MONITORING.
[2019-09-29 19:50] VITALS: BP 113/80
--- NOTE | 2019-09-29 21:09 | NUR ---
NORCO GIVEN PER CLIENTS REQUEST FOR BAD PAIN IN HIS HIP AND HEAD. SITTING UP IN WHEELCHAIR INTERACTING WITH PEERS
--- NOTE | 2019-09-29 21:15 | NUR ---
P--HOPELESS/HELPLESS, ANGRY I--CLIENT Ax3. DISCUSSED MEDICATIONS. REVIEWED HIS PRN MEDICATION. ALLOW 1:1 TIME FOR HIM TO INTERACT. NO OUTBURSTS OF SADNESS OR ANGER. R--I'M NOT SUICIDAL RIGHT NOW. FEELING A LITTLE BETTER. INTERACTING WITH PEERS IN DININGROOM. EATING WELL. MEDICATION COMPLIANT P--MONITOR FOR CHANGES IN MOOD/BEHAVIOR. MONITOR Q15 MIN AND PRN FOR SAFETY. CONTINUE EMOTIONAL SUPPORT
--- NOTE | 2019-09-30 04:34 | NUR ---
24 HR chart check completed.
--- NOTE | 2019-09-30 05:26 | NUR ---
SLEPT A BROKEN 6 HOURS. MOVED SELF AROUND IN BED. NO COMPLAINTS AT THIS TIME
--- NOTE | 2019-09-30 07:35 | NUR ---
PHYSICAL THERAPY Patient seen this am for therapy visit and was supine in bed upon therapist arrival. Patient identified by name / and reports no new c/o's at this time. OT personal care assistant was present for observation only this morning as patient continues to present with increased L LE Hanstring / Gastroc tightness and limited use of L UE secondary to prior CVA. Patient tolerated supine L LE hanstring / gastroc prolonged stretch to increase ROM, followed by PROM in all planes, L LE, with patient voicing temporary increased c/o pain due to muscular / joint tightness. Patient also transfers supine to sit EOB with MIN A and needed therapist assist to Don / DOFF L KAFO, including sneakers. Patient performed sit to stand transfer, MIN A, with use of st cane standing support, completing SPT to his w/c. KAFO removed as patient remained in w/c then transported to activity room for breakfast. Patient remained at table under [facility] staff Supervision and will continue per POC as tolerated, total treatment time 20 minutes. Cory Sánchez, ROLLER SKATE REPAIRER
--- NOTE | 2019-09-30 07:52 | NUR ---
OT NOTE Pt was seen this A.M. 1:1 for 20 minute OT session. Upon arrival pt was supine in bed. Pt identified by name and . Pt's white tennis shoes and straight cane where gathered from nursing. Pt transferred supine to sit EOB with modA for assist with UB. While sitting EOB pt donned L brace and tennis shoe with maxA and R shoe with modA. Sit to stand completed from bed level with Silvia followed by standing pivot from the EOB to the w/c with Silvia and use of straight cane for UE support. Once pt was into the w/c brace was then doffed and black shoes donned. Brace and white shoes returned to nursing staff and locked up. Throughout transfer pt required verbal prompts for safety awareness and impulsive behavior increasing risk of falls. Pt was left sitting upright in the w/c in the dining short under U staff supervision. COntinue with rec D/C plan to SNF. POP Rockwell
[2019-09-30 08:00] VITALS: BP 123/76
--- NOTE | 2019-09-30 08:00 | NUR ---
Treatment Plan meeting was held with Dr. Baird, RN, AT, WARP TRUCKER-S and Hospital Chief Executive Officer. Plan for discharge next week. Pt. will require SNF for Rehab.
--- NOTE | 2019-09-30 10:45 | NUR ---
PHYSICAL THERAPY Spoke with Kristie cavanaugh discharge planning per business education professor would not be able to come out until next Friday $150 fee for consult plus adjustment fees. Per Kristie will likely be discharged prior to that, will follow and monitor situation Loida Schaefer PT
--- NOTE | 2019-09-30 11:00 | NUR ---
DR FONG ON UNIT TO SEE PATIENT
--- NOTE | 2019-09-30 12:55 | NUR ---
SMALL GROUP PT ATTENDED A SMALL GROUP SESSION WITH MYSELF AND ANOTHER PEER. DISCUSSION FOCUSED ON SUICIDAL IDEATIONS AND COPING STRATEGIES FOR SUCH. PT WAS VERY RECEPTIVE AND CONTRIBUTED TO THE CONVERSATION. PT IS HOPEFUL FOR THE FUTURE AND WILLING TO TRY ANY HELPFUL STRATEGIES.
--- NOTE | 2019-09-30 12:57 | NUR ---
Family meeting held with pt, pt's Francy, and this appeals writer. Discussed pt's current status. Discussed pt's mental state since his CVA and pt's need for emotional healing. Discussed the event of pt's CVA as a to the life that pt had and wanted. Discussed that the CVA has also caused a loss to pt's and children. Assisted pt in recognizing that his future and that of his family's can still be positive. Francy voiced affirmations to pt. Discussed reinventing pt's life and his family's. Discussed grieving, emotional healing, and reinventing one's life further. Discussed tentative plan of pt discharing to a SNF for PT/OT. Preferred SNF is [facility]. Discussed pt continuing with counseling upon discharge with Elian Gross PhD. Discussed Francy getting individual counseling, as well as pt and Francy working with a marriage therapist.
--- NOTE | 2019-09-30 13:54 | NUR ---
Submitted PASRR for tentative discharge plan of SNF placement.
--- NOTE | 2019-09-30 15:00 | NUR ---
Nursing phoned OTR regarding hand contracture and need for palm sheild. OTR will have ADAMS apply left palm sheild after ROM to left hand/wrist for prevention of skin breakdown. Add OT goal: Improve left hand/wrist PROM for tolerance of palm guard. Educate patient on PROM left hand/wrist and establish wear schedule for palm guard. Steff Alex OTR/l
--- NOTE | 2019-09-30 15:46 | NUR ---
PM GROUP PT CHOSE NOT TO ATTEND AFTERNOON GROUP THERAPY. PT WAS IN HIS BED RESTING.
--- NOTE | 2019-09-30 17:53 | NUR ---
P: DEPRESSED MOOD I: 1:1 PROVIDED FOR THERAPEUTIC COMMUNICATION. ENCOURAGED MEDICATION COMPLIANCE. ENCOURAGED INCREASED INTERACTIONS WITH PEERS. ENCOURAGED ATTENDANCE AND PARTICIPATION IN GROUPS. MONITORED BEHAVIORS WITH Q15 MINUTE SAFETY CHECKS. R: MEDICATION COMPLAINT. PT OPEN TO COMMUNICATING WITH PTS HOWEVER DID NOT INTERACT MUCH WITH PEERS. PT ATTENDED AND PARTICIPATED IN GROUP TODAY. NO ADVERSE BEHAVIORS NOTED. P: CONTINUE TO OFFER 1:1 FOR THERAPEUTIC COMMUNICATION. CONTINUE TO ENCOURAGE MEDICATION COMPLIANCE. CONTINUE TO ENCOURAGED INTERACTIONS WITH PEERS AND STAFF AND ATTENDANCE AND PARTICIAPTION IN GROUPS. CONTINUE TO MONITOR BEHAVIORS WITH Q15 MINUTE SAFETY CHECKS. SEE [facility] FLOWSHEET FOR SPECIFIC MONITORING.
--- NOTE | 2019-09-30 18:40 | NUR ---
PENNY Pop FROM [employer] ON UNIT TO ASSESS PT
[2019-09-30 19:46] VITALS: BP 140/68
--- NOTE | 2019-09-30 20:56 | NUR ---
P--HOPELESS/HELPLESS/ PAIN I--ALLOWED CLIENT TO VENT FEELINGS AND TALK ABOUT FAMILY, ENCOURAGED HIM TO DO MORE FOR HISSELF. ENCOURAGEMENT GIVEN, EMOTIONAL SUPPORT GIVEN. MEDICATIONS INCLUDING NORCO GIVEN. ENCOURGED HIM TO REMAIN INTERACTIVE AND NOT ISOLATE SELF. ENCOURAGED HIM TO KEEP WORKING SO HE CAN BE PART OF FAMILY LIFE. REMINDED HIM ONE SIDE OF HIM IS WEAK BUT THE OTHER IS NOT AND HE IS STILL ABLE TO HUG, KISS AND BE THERE FOR HIS FAMILY. R--OH I AM DOING GOOD. MY DAUGHTERS HAVE THE MOST BEAUTIFUL LONG DARK HAIR. MY YOUNGEST HAS BEEN CHEATED BY ALL THIS. I NEED TO WORK HARDER P--CONTINUE EMOTIONAL SUPPORT AND ENCOURAGEMENT. MONITOR FOR CHANGES IN BEHAVIOR/MOOD. CONTINUE Q 15 MINUTE AND PRN SAFETY CHECKS
--- NOTE | 2019-09-30 21:27 | NUR ---
DRESSING CHANGE TO LEFT OUTER ASPECT OF ANKLE. CHANGED PER ORDERS
--- NOTE | 2019-10-01 02:03 | NUR ---
24 HR chart check completed.
--- NOTE | 2019-10-01 07:15 | NUR ---
PHYSICAL THERAPY Patient seen this am for therapy visit and was supine in bed upon therapist arrival. Patient identified by name / and reports sleeping well last night secondary to room change, with having no roomate to awaken him. Patient still c/o of increased L LE muscle tightness with 5/10 L hip pain. Patient tolerated PROM to L LE, all planes, including prolonged L Gastroc / Hamstring stretch and demonstrated increased PROM in L hip flexion / abduction. Patient transfers supine to sit EOB with MIN A and needed assistance with putting on L KAFO / white sneakers. Patient then performed sit to stand transfer with use of st cane, MOD A x 1, completing SPT to his w/c with MIN A. KAFO removed and black sneakers put on with L LE elevated on w/c foot rest. Patient transported to activity room for breakfast and remained under [facility] staff Supervision. Will continue per POC as tolerated, total treatment time 19 minutes. Cory Sánchez, FACTORY SUPERVISOR
--- NOTE | 2019-10-01 07:30 | NUR ---
OT NOTE *Prior to session nursing spoke with OTR about a possible palm shield for pt's left hand. Per OTR this ADAMS is to begin with ROM to the L hand and follow with placing a left handed palm shield on the pt during this session. Pt was seen this A.M. 1:1 for 30 minute OT session with DEFENSIVE FIRE CONTROL SYSTEMS OPERATOR and nursing staff present for observation only. Upon arrival pt was supine in bed. Pt identified by name and and had no complaints at this time. While supine in bed ROM with gentle stretch to point of tolerance was completed to L handed digits, wrist, elbow, and shoulder joints over all planes of motion. Normal skin color to L hand was noted, no open areas, dry, and slight odor present. Pt was educated on self ranging to L hand and proper hand hygiene. Palm shield placed on L hand with staff notified and educated on proper wear/fit. Pt transferred supine to sit EOB with Silvia for assist with UB. While sitting EOB donned pt's L brace and white tennis shoes. Pt completed sit to stand from bed level followed by standing pivot from the EOB to the w/c with modA and use of straight cane for UE support. Pt was then taken out into the hallway where he completed multiple sit to stand transfers from chair level with modA and use of hand rail for UE support. Upon inital rise pt had LOB that required modA to correct. Challenged pt's static standing tolerance needed for increased I in self care tasks and functional transfers, pt was able to tolerate aprox 45-60 seconds before sitting due to fatigue. While sitting pt's brace and white tenis shoes where doffed and black shoes donned. Pt's white shoes and straight cane were returned to nursing and locked up. Pt was left sitting upright in the w/c in the dining short under [facility] staff supervision. COntinue with rec D/C plan to SNF. BRYAN Rockwell/Negra
--- NOTE | 2019-10-01 08:00 | NUR ---
Treatment Plan meeting was held with RC Joiner RN, ARTS AND HUMANITIES COUNCIL DIRECTOR-S and Nude Model. Plan for discharge next week or the following. Pt. is for SNF Placement for Rehab due to weakness from CVA. Will require Precert Prior to Discharge. Pt. and have requested [facility] as first Option.
[2019-10-01 09:21] VITALS: BP 152/86
--- NOTE | 2019-10-01 09:38 | NUR ---
SPOKE WITH DR RAMOS RE: PT REQUESTING PAIN MEDICATION THIS MORNING FOR HIP PAIN AND DOES NOT HAVE ANY PRN MEDICATIONS. PER HE WILL ORDER SOMETHING.
--- NOTE | 2019-10-01 12:01 | NUR ---
Invited pt to group counseling this AM. Pt was in bed and declined stating he was sleepy and having hip pain.
--- NOTE | 2019-10-01 12:13 | NUR ---
PT MEDICATED WITH NORCO PRN PER ORDERS D/T C/O HIP AND SHOULDER.
--- NOTE | 2019-10-01 13:20 | NUR ---
NO FURTHER C/O PAIN NOTED AT THIS TIME. WILL CONTINUE TO MONITOR.
--- NOTE | 2019-10-01 13:26 | NUR ---
DR FONG FOR DR CANNON ON UNIT TO ASSESS PT, UPDATE PROVIDED.
--- NOTE | 2019-10-01 13:40 | NUR ---
OT NOTE Pt was seen this P.M. for second OT session consisting of 15 minutes with nursing staff present for observation only. Upon arrival pt was supine in bed. This ADAMS went to check pt's skin were new palm shield was placed in the A.M.. No redness or irritation was noted and pt stated "it feels great, I am very happy with it." Shield was noted to be slipped out of position a little so therapist doffed shield completed gentle PROM to L digits and wrist over all planes and re donned shield. U staff notified. Continue with POC to SNF. BRYAN Rockwell/Negra
--- NOTE | 2019-10-01 14:33 | NUR ---
P: PT MOOD IS DEPRESSED, PT ISOLATIVE ROOM INTERMITTENTLY THROUGHOUT THE DAY. I: PROVIDED EMOTIONAL SUPPORT AND 1:1 FOR PT TO VOICE FEELNGS, ENCOURAGE GROUP PARTICIPATION AND SOCIALIZATION R: PT ALERT TO PERSON, PLACE, TIME AND SITUATION. PT MED COMPLIANT WITHOUT DIFFICULTY, MED EDUCATION PROVIDED. PT PLEASANT AND COOPERATIVE WITH STAFF. PT CONTINUES TO ISOALTE TO ROOM AT TIMES THROUGHOUT THE DAY. NO HALLUCINATIONS OR DELUSIONS NOTED. PT DENIES ANY SUICIDAL/HOMICIDAL THOUGHTS. PT UP TO A WHEELCHAIR, WILL AMBULATE SHORT DISTANCES WITH CANE AND 1 STAFF ASSIST. PT CONTINENT OF BOWEL AND BLADDER. P: MONITOR PT BEHAVIORS ON Q15 MIN SAFETY CHECKS, ENCOURAGE MED COMPLIANCE AND PROVIDE MED EDUCATION, ENCOURAGE GROUP PARTICIPATION AND SOCIALIZATION, PROVIDE EMOTIONAL SUPPORT AND 1:1 FOR PT TO VOICE FEELINGS.
--- NOTE | 2019-10-01 14:33 | NUR ---
DRESSING CHANGED TO LEFT ANKLE PER ORDERS
--- NOTE | 2019-10-01 15:53 | NUR ---
Referral faxed to [facility].
--- NOTE | 2019-10-01 16:32 | NUR ---
OCCUPATIONAL THERAPY CO-SIGN I approve of the Occupational Therapy notes written above. ALLA VERAS OTR/Negra
--- NOTE | 2019-10-01 16:32 | NUR ---
PHYSICAL THERAPY CO-SIGN I approve of the Physical Therapy notes written above. Loida Schaefer PT
[2019-10-01 19:30] VITALS: BP 147/88
--- NOTE | 2019-10-01 19:54 | NUR ---
24 HR chart check completed.
--- NOTE | 2019-10-01 22:30 | NUR ---
P-DEPRESSED I-PROVIDED EMOTIONAL SUPPORT AND ENCOURAGE VENTILATION OF FEELINGS. ADMINISTER MEDICATIONS, MONITOR SLEEP R-DEPRESSED MOOD. ALERT TO PERSON, PLACE, TIME AND SITUATION. DENIES SI/HI. STATED, "I HAD A PRETTY GOOD DAY TODAY. I THINK THE MEDS ARE STARTING TO KICK IN. SAT IN THE DINING ROOM WITH PEERS LISTENING TO MUSIC & SINGING. COMPLAINT WITH MEDS & RECEPTIVE TO EDUCATION. PLEASANT & COOPERATIVE WITH STAFF. CONTINENT OF URINE & USES BEDSIDE URINAL P-CONTINUE TO MONITOR. PROVIDE PHYSICAL ASSISTANCE & EMOTIONAL SUPPORT NEEDED.
--- NOTE | 2019-10-02 05:56 | NUR ---
PT HAS SLEPT PAST [id number]
[2019-10-02 08:00] VITALS: BP 153/86
--- NOTE | 2019-10-02 12:02 | NUR ---
AM GROUP/EXERCISE/BINGO/CRAFT PT IN ATTENDNACE AND PARTICIPATED IN ALL GROUP ACTIVITY. PT PLEASANT AND ON TASK WITH NO SUICIDAL IDEATIONS OR ANGRY OUTBURSTS EXPRESSED AT THIS EIME. PT WILL OCNITNUE OT ATTEND AND PARTICIPATE IN FUTURE GROUP SESSIONS.
--- NOTE | 2019-10-02 15:47 | NUR ---
PT HOPELESS/HELPLESS. ENCOURAGED TO ATTEND GROUP THERAPY AND SOCIALIZE WITH PEERS. ENCOURAGED TO VERBALIZE FEELINGS. PT PARTICIPATED IN GROUP WITH MUCH ENCOURAGEMENT, APPROPRIATE VERBAL INTERACTIONS WITH STAFF AND PEERS. PT CONTINUES TO REQUEST ASSISTANCE FOR STANDING, TRANSFERS, AND GOING TO THE BATHROOM. PT ENCOURAGED TO PERFORM ADL'S TO HIS MAXIMUM ABILITY. WILL CONTINUE TO ENCOURAGE PARTICIPATION IN GROUP FOR SOCIALIZATION AND SUPPORT. WILL CONTINUE TO ENCOURAGE PT TO PERFORM HIS ADL'S TO HIS MAXIMUM FUNCTIONAL POTENTIAL.
--- NOTE | 2019-10-02 15:55 | NUR ---
PM GROUP/RIDDLES/CRAFT PT ATTENDED AND PARTICIPATED IN ALL GROUP ACTIVITY. PT PLEASANT AND ON TASK WITH NO S.I OR ANGRY OUTBURSTS EXPRESSED. PT WILL CONTINUE TO ATTEND AN DPARTICIPATE IN FUTURE GROUP SESSIONS TO BEST OF PT ABILITY.
[2019-10-02 20:00] VITALS: BP 156/70
--- NOTE | 2019-10-02 21:41 | NUR ---
Patient alert and oriented to person,place,time and situation. Mood depressed. Patient denies SI/HI at this time. No overt s/s of any responding to internal stimuli noted. Patient said "I had a good day today. I still have a lot work to do in order to get better. I'm trying." Patient compliant with HS medications without any difficulty. Provided 1:1 for therapeutic communication and emotional support. Plan to continue to encourage medication compliance. Also continue to provide emotional support and therapeutic communication. Will continue to monitor moods/behaviors. Q 15 minute safety checks continued and maintained. See [facility] flowsheet for further documentation.
--- NOTE | 2019-10-03 05:30 | NUR ---
Patient slept approx. 5 hours throughout shift. Q 15 minute safety checks continued and maintained.
[2019-10-03 07:55] VITALS: BP 132/73
--- NOTE | 2019-10-03 12:36 | NUR ---
PT CONTINUES WITH HOPELESS/HELPLESS BEHAVIORS. PT IN HALLWAY YELLING "HELP ME! I NEED HELP!!" PT ENCOURAGED TO CALM DOWN AND EXPRESS NEEDS/WANTS. PT ABLE TO STATE THAT HE DID NOT ASK ANYONE UNTIL IT WAS TOO LATE AND THEN HE BECAME ANXIOUS AND IRRITABLE BECAUSE HE NEEDED ASSISTANCE RIGHT THEN. PT ENCOURAGED TO PERFORM HIS ADLS ABLE. PT DID TRANSFER SELF FROM BED TO CHAIR. PT STATES INABILITY TO PIVOT TO USE RESTROOM BY HIMSELF, 1 STAFF ASSIST REQUIRED. WILL CONTINUE TO ENCOURAGE PT TO PERFORM ADL'S TO MAXIMUM FUNCTIONAL ABILITY. WILL ENCOURAGE PT TO CALMLY EXPRESS WANTS AND NEEDS TO STAFF. Q 15 MIN MONITORING PER POLICY FOR SAFETY.
[2019-10-03 20:00] VITALS: BP 138/80
--- NOTE | 2019-10-04 01:36 | NUR ---
Patient alert and oriented to person,place,time and situation. Mood depressed. Patient denies SI/HI at this time. No overt s/s of any responding to internal stimuli noted. Patient more interactive with staff and other patients. Patient compliant with HS medications without any difficulty. Provided 1:1 for therapeutic communication and emotional support. Plan to continue to encourage medication compliance. Also continue to provide emotional support and therapeutic communication. Will continue to monitor moods/behaviors. Q 15 minute safety checks continued and maintained. See [facility] flowsheet for further documentation.
--- NOTE | 2019-10-04 05:39 | NUR ---
Patient slept approx. 7 hours throughout shift. Q 15 minute safety checks continued and maintained.
--- NOTE | 2019-10-04 07:10 | NUR ---
PHYSICAL THERAPY Patient seen this am for therapy visit and was supine in bed upon therapist arrival. Patient identified by name / and reports 7/10 L hip pain secondary to increased joint / muscle tightness. Patient tolerated PROM, all planes, L LE to increase ROM, followed by D1 / D2, L LE, PNF to facilate AROM. Patient transfers with L KAFO and requires therapist assistance to Angelo / DOFF brace, while transfering supine to sit EOB MIN A. Patient performed sit to stand transfer, st cane support, CGA, completing SPT to his w/c, CGA, and demonstrating POOR L foot placement. Patient requested use of Urinal to void and needed to return to supine in bed since this seems to work best for him. Patient completed all transfers once again with no change in status and remained in w/c with brace off and black sneekers for comfort. Patient transported via w/c to activity room awaiting breakfast under [facility] staff Supervison. Will continue per POC as tolerated, total treatment time 30 minutes. oCry Sánchez, CHEMICAL LABORATORY SCIENTIST
[2019-10-04 07:26] LABS: BUN 10 mg/dl (7-24); CHLORIDE 105 mmol/L (98-107); CREATININE 0.62 mg/dL (0.70-1.30); POTASSIUM 3.5 mmol/L (3.5-5.1); SODIUM 141 mmol/L (136-145)
--- NOTE | 2019-10-04 07:30 | NUR ---
OT NOTE Pt was seen this A.M. 1:1 for 30 minute OT session with GROUP WORK PROGRAM AIDE and nursing staff present for observation only. Upon arrival pt was supine in bed. Pt identified by name and and had complaints of 7/10 L hip pain. While supine in bed completed PROM to L digits and wrist over all planes of motion for multiple reps. Pt's L hand was normal in color compared to R, dry, no open areas noted, and no odor present this session. After ROM was completed donned L handed palm shield and notified staff. Pt transferred supine to sit EOB with SBA. Upon inital rise pt had complaints of being dizzy, pt was educated on visual fixation technique and after aprox 10 seconds pt stated he was no longer dizzy. While sitting EOB donned L brace and white tennis shoe. Sit to stand completed from bed level with Silvia and use of straight cane for UE support. Standing pivot then completed from the EOB to the w/c with Silvia and use of straight cane for UE support. Pt was then taken out into the hallway where he completed multiple sit to stand transfers from chair level with modA and use of hand rail for UE support. Pt presented with R lateral lean which he was unable to self recognize. Challenged pt's static standing tolerance needed for increased I in self care tasks and functional transfers, pt was able to tolerate aprox 2 mintues at a time before sitting due to fatigue. Pt then stated he had to use the bathroom which he would only complete by using the urinal in bed. Pt trnasferred w/c to the EOB with Silvia and then supine to sit EOB with Silvia. Pt then transferred back into the w/c with Silvia. Pt's white shoes were doffed and black shoes donned. White shoes and cane returned to nursing and locked up. Pt was left sitting upright in the w/c in the dining short under [facility] staff supervision. Continue with rec D/C plan to SNF. POP Rockwell
--- NOTE | 2019-10-04 08:00 | NUR ---
Treatment Plan meeting was held with Dr. Baird, RC Joiner, RN, AT, RADIO PRESENTER-S and Dry Goods Clerk. Plan for discharge . Pt. has been referred to [facility] for SNF for therapy. Will follow with [facility] Today to discuss discharge Planning.
[2019-10-04 08:05] VITALS: BP 158/102
[2019-10-04 08:55] VITALS: BP 158/102
--- NOTE | 2019-10-04 08:55 | NUR ---
MANUAL BP 158/102; CALL PLACED TO DR. URIBE AND LEFT MESSAGE; PATIENT PROVIDED WITH ROUTINE BP MEDICATIONS.
--- NOTE | 2019-10-04 10:36 | NUR ---
Spoke with [place] of [place] [facility] who stated that pt's PAS is being reviewed by [facility] Board of DD due to seizure diagnosis. Spoke with Hannah Lieberman of [facility] and faxed additional pt info to her attention.
--- NOTE | 2019-10-04 10:48 | NUR ---
Additional Clinical Updates faxed to [employer].
--- NOTE | 2019-10-04 10:48 | NUR ---
Pt. is approved in [facility].
[2019-10-04 11:00] VITALS: BP 140/88
--- NOTE | 2019-10-04 11:00 | NUR ---
RECHECKED BP MANUAL 140/88.
--- NOTE | 2019-10-04 11:51 | NUR ---
AM GROUP MORNING GROUP THERAPY WAS SHORTENED DUE TO PT 1:1. PT WAS IN BED RESTING AND DID NOT ENTER THE DAYROOM DURING GROUP
--- NOTE | 2019-10-04 12:31 | NUR ---
Received Call from Libby at [facility]. Referral Decline. tool sharpener Feels that patient is not appropriate.
--- NOTE | 2019-10-04 13:20 | NUR ---
Referral Faxed to [phone].
--- NOTE | 2019-10-04 13:42 | NUR ---
DR. FONG AND DR. SERRANO ON UNIT TO ASSESS PATIENT.
--- NOTE | 2019-10-04 15:26 | NUR ---
PATIENT IS ALERT TO PERSON, PLACE, TIME AND SITUATION; ABLE TO VOICE NEEDS. MOOD IS SLIGHTLY DEPRESSED, IMPROVEMENT NOTED. DENIES ANY HALLUCINATIONS, DELUSIONS, HI/SI OR PAIN. 1 PERSON ASSIST WITH ACTIVITIES OF DAILY LIVING, CONTINENT OF BOWEL AND BLADDER. SET UP FOR MEALS, INTAKES ARE GOOD WITH ADEQUATE FLUIDS. LEFT LEG BRACE ON FOR TRANSFERS ONLY. 2 PERSON ASSIST TO ASSIST ONTO SHOWER CHAIR. MEDICATION COMPLAINT WITH EDUCATION PROVIDED. Q 15 MINUTE SAFETY CHECKS MAINTAINED. INTERACTIVE WITH STAFF AND OTHER PATIENTS. CONTINUE TO MONITOR MOOD, OUTBURST AND SUICIDAL IDEATIONS. PROVIDE ONE ON ONE, REDIRECTION, ENCOURAGE PATIENT TO ATTEND AND PARTICIPATE IN GROUP SESSIONS.
--- NOTE | 2019-10-04 15:42 | NUR ---
PM GROUP PT DID NOT ATTEND AFTERNOON GROUP THERAPY. PT WAS IN BED RESTING.
[2019-10-04 15:47] LABS: VITAMIN D, 25-HYDROXY 23.3 ng/mL (30-100)
--- NOTE | 2019-10-04 15:57 | NUR ---
PHYSICAL THERAPY Spoke with Kristie office workforce planner who had discussed with Cory BLANCO brace, Replenisher assesment/adjusment would not be covered by the unit if to come into see pt would have to be done at SNF or as outpatient. Spoke w and updated Celeste as well as messaged w burnt lime drawer. Contact information given to and will call burnt lime drawer to dicuss options. Updated burnt lime drawer on above and to contact him at some point. Loida Schaefer PT
--- NOTE | 2019-10-04 16:13 | NUR ---
Received Call From Paula At [facility]. Pt. is accepted at Facility and Precert has been started. Paula will visit [facility] to Meet Patient and Discuss Discharge Plans and Follow Through, also that facility does not recognize the Medical Marijuana Card at this time.
[2019-10-04 19:46] VITALS: BP 127/90
--- NOTE | 2019-10-04 20:41 | NUR ---
EVENING/POSITIVE SELF-TALK PT ATTENDED AND PARTICIPATED IN ALL GROUP ACTIVITY. PT PLEASANT AND ON TASK WITH NO EXPRESSION OF S.I. OR ANGRY OUTBURSTS AT THIS TIME. PT WILL CONTINEU TO ATTEND AND PARTICIPATE IN FUTRUE GROUP SESSIONS.
--- NOTE | 2019-10-05 00:17 | NUR ---
P--RESOLVING SUICIDAL IDEATIONS I--MEDICATION EDUCATION. ALLOWED CLIENT 1:1 TIME. EMOTIONAL SUPPORT PROVIDED. R--I AM FEELING GOOD. EVERYTHING WAS FINE TODAY P--MONITOR FOR CHANGES IN BEHAVIIOR/MOOD. MONITOR Q 15 MINUTES AND PRN FOR SAFETY
--- NOTE | 2019-10-05 01:56 | NUR ---
24 HR chart check completed.
--- NOTE | 2019-10-05 07:05 | NUR ---
DANIEL KEENAN [id number] Please refer to the physician's history and physical for past medical history, comorbid conditions, and allergies. Diagnosis: MAJOR DEPRESSION RECURRENT SEVERE Efe Score: 19,LOW OR NO RISK WOUND DESCRIPTIONS: Wound Number: 1 Location of the wound: left forearm Type of wound: scab Thickness: partial Size: 0.3cm x 0.5cm x <0.1cm Tunneling: none Undermining: none Sinus Tract: none Presence of Exudate: none Amount: None Color: Red Odor: None Periwound Skin Appearance: Normal Wound edges: approximated Pain (associated with wound): none at time of assessment Left ankle and doral apsect of left foot red and blanchable areas noted at time of assessment. No open areas noted at time of assessment, no drainage noted at time of assessment Surface the patient is resting on: Proform SKIN PREVENTION RECOMMENDATION: 1. Pressure redistribution support surface as appropriate 2. Elevate heels 3. Remove boots/TEDS every shift and reapply 4. Head of bed 30 degrees as tolerated 5. Assess nutrition and hydration 6. Manage moisture 7. Avoid the use of containment devices while in bed 8. Use absorptive products on surfaces limit layers of linens on bed 9. Turn and reposition every 1-2 hours in bed and every 1 hour in chair as tolerated 10. Weight shifts every 15 minutes while up in chair 11. Offloading with pillows or device to keep heels elevated off bed 12. Monitor skin at least every shift 13. Inspect under medical devices twice a day WOUND TREATMENT RECOMMENDATIONS: Continue skin tear guidelines to left forearm. Continue Heel raiser pro boots to bilateral heels while in bed for prevention. D/C skin tear guidelines to left ankle and dorsal aspect of left foot Clarify dressing change orders: Apply sureprep to left ankle and dorsal aspect of left foot BID allow time to dry then cover with optifoam gentle.
--- NOTE | 2019-10-05 07:05 | NUR ---
OT NOTE Pt was seen this A.M. 1:1 for 15 minute OT session with FOOTWEAR STITCHER and nursing staff present for observation only. Upon arrival pt was supine in bed. Pt identified by name and and had complaints of 4/10 L hand pain. Pt's closed fist L hand was normal in color compared to R, dry, no open areas, and mild odor noted. Completed PROM to L digits and wrist over all planes of motion for multiple reps and then palm shield was donned for skin protection. Pt was left supine in bed with bed alarm activated for safety and under U staff supervision. Continue with rec D/C plan to SNF. BRYAN Rockwell/Negra
[2019-10-05 07:46] VITALS: BP 148/80
--- NOTE | 2019-10-05 08:00 | NUR ---
Treatment Plan meeting was held with Dr. Baird, RN, AT, CONTEMPORARY OR MODERN DANCER-S and Rack Puller. Plan for discharge next Several days. Precert Pending for [facility]ip Castillo for [facility]. Precert Started 10/04/2019.
--- NOTE | 2019-10-05 08:50 | NUR ---
SPOKE WITH DR RAMOS RE: PT C/O CHEST PAIN, ADVISED THAT DR LANE JUST SPOKE WITH PT REGARDING HIS PALCEMENT AT [facility] FOR SNF AND PT WAS PREVIOUSLY UNAWARE OF THIS. PT STATED "THATS TOO FAR FROM MY ." PT IS IN NO S/S OF DISTRESS, PT DENIES FEELING ANXIOUS. PER DR RAMOS CONTINUE TO MONITOT PT, ADMINISTER PRN NORCO PER ORDERS AND SPEAK WITH DR LANE RE: PRN ATIVAN. VS [id number]. WILL CONTINUE TO MONITOR.
--- NOTE | 2019-10-05 08:54 | NUR ---
VERBAL ORDERS RECIEVED FOR ATIVAN [address] LANE.
--- NOTE | 2019-10-05 09:20 | NUR ---
PHYSICAL THERAPY Patient seen this am for therapy visit and was sitting up in his w/c near nurses station upon therapist arrival. Patient identified by name / and reports no new c/o's at this time. Patient presented with increased L LE muscle tightness which contributes to L hip pain. Patient tolerated seated PROM L Gastroc / Hamstring to increase ROM and reduce pain c/o. Patient also performed seated R LE therex, all planes, 2 x 10 to increase LE strength, needed several v/c's to increase LAQ ROM. Patient tolerated all treatment voicing no new c/o's and remained in w/c near nurses station under [facility] staff Supervision. Will continue per POC as tolerated, total treatment time 16 minutes. Cory Sánchez, BOOMSWING OPERATOR
--- NOTE | 2019-10-05 10:14 | NUR ---
P: PT MOOD IS DEPRESSED AND MILDLY ANXIOUS. PT ISOLATIVE TO SELF AT TIMES THROUGHOUT THE DAY. I: PROVIDE EMOTIONAL SUPPORT AND 1:1 FOR PT TO VOICE FEELINGS, ENCOURAGE GROUP PARTICIPATION AND SOCIALIZATION R: PT ALERT TO PERSON, PLACE, TIME AND SITUATION. PT MED COMPLIANT WITHOUT DIFFICULTY. PT PARTICIPATING IN MORNING GROUP AT THIS TIME. PT DENIES ANY SUICIDAL THOUGHTS. WHEN ASKED ABOUT HIS ANXIETY, PT STATED "IM NOT GOING TO THAT PLACE IN [place], IT IS TOO FAR FOR MY ". PT ADMINISTERED PRN ATIVAN PER ORDERS. PT PLEASANT AND COOPERATIVE WITH STAFF. PT UP TO A WHEELCHAIR, WILL AMBULATE SHORT DISTANCES WITH CANE AND STAFF ASSISTANCE. PT REQUIRES 1 STAFF ASSIST FOR TRANSFERS. PT CONTINENT OF BOWEL AND BLADDER. P: MONITOR PT BEAHVIORS ON Q15 MIN SAFETY CHECKS, ENCOURAGE MED COMPLIANCE AND PROVIDE MED EDUCATION, ENCOURAGE GROUP PARTICIPATION AND SOCIALIZATION, PROVIDE EMOTIONAL SUPPORT AND 1:1 FOR PT TO VOICE FEELINGS
--- NOTE | 2019-10-05 10:45 | NUR ---
Paula From [facility] here to see Patient for Onsite Assessment. Precert remains pending. Inquired about counseling at the facility and Paula states that patient could receive Counseling at the facility while there for SNF, but is unable to do outpatient while Skilled.
--- NOTE | 2019-10-05 11:17 | NUR ---
SPOKE WITH MOHIT-WOUND CARE AND ADVISED THAT PT IS NO LONGER WEARING THE LEG BRACE ALL DAY, ONLY FOR TRANSFERS D/T IMPROPER FITTING OF THE BRACE, PER MOHIT IT IS OK TO CHANGE DRESSING Q2DAYS. SPOKE WITH DR RAMOS WHO STATED "OK JUST GO AHEAD AND CHANGE IT BACK." NO FURTHER ORDERS AT THIS TIME.
--- NOTE | 2019-10-05 11:38 | NUR ---
AM GROUP/MUSIC THERAPY PT ATTENDED AND PARTICIPATED IN ALL GROUP ACITIVITIES. PT WAS FOCUSED AND ON TOPIC. PT EXPRESSED NO SUICIDAL IDEATIONS WHILE IN GROUP.
--- NOTE | 2019-10-05 13:00 | NUR ---
DR FONG AND DR RAMOS ON UNIT TO ASSESS PT, UPDATE PROVIDED.
--- NOTE | 2019-10-05 15:12 | NUR ---
Met with pt's Francy and discussed status of pt's discharge. Francy shared about the difficulty that she, pt and their children have been experiencing since pt's CVA. Francy was tearful as she shared. Empathized with Francy and offered support. Discussed the positives of pt discharging to SNF and continuing with counseling. Discussed the benefits for Francy in working with a counselor as well.
--- NOTE | 2019-10-05 15:16 | NUR ---
Asked pt to participate in group therapy. Pt declined stating that he was sleepy and in pain.
--- NOTE | 2019-10-05 15:35 | NUR ---
PM GROUP PT DID NOT ATTEND AFTERNOON GROUP THERAPY. PT WAS IN BED RESTING.
[2019-10-05] MEDS ORDERED: GOLD BOND MEDI113 G2 T (17:57)
[2019-10-05 19:45] VITALS: BP 111/88
--- NOTE | 2019-10-05 20:36 | NUR ---
EVENING/MUSIC/YAHTZEE PT ATTENDED AND PARTICIPATED IN ALL ACTIVITY. PT PLEASANT AND ON TASK ALTHOUGH EXPRESSING HIP PAIN. PT EXPRESSES NO S.I. OR ANGRY OUTBURSTS. PT WILL CONTINUE TO ATTEND AND PARTICIPATE GIANFRANCO FUTURE GROUP SESSIONS.
[2019-10-05 20:40] VITALS: BP 124/88
--- NOTE | 2019-10-05 21:19 | NUR ---
P-DEPRESSED MOOD I-PROVIDED 1:1 WITH THERAPEUTIC INTERVENTIONS. PROVIDED EMOTIONAL SUPPORT. ENCOURAGE MEDICATION COMPLIANCE AND EDUCATE. MONITOR SLEEP. R-PT ALERT AND ORIENTED X4. PT CALM, PLEASANT, AND COOPERATIVE. DURING 1:1 PATIENT STATED "IM DOING OKAY RIGHT NOW, IM STILL A LITTLE DEPRESSED BUT IM DOING BETTER". PT DENIES SUICIDAL IDEATIONS AND CONTRACTED FOR SAFETY. PT ALSO DENIES HI, HALLUCINATIONS, OR PAIN. PT MEDICATION COMPLIANT WITHOUT DIFFICULTY AFTER REVIEW. PT MOBILIZES SELF USING A WHEELCHAIR, X1 ASSIST, CONTINENT OF BOWEL AND BLADDER. PT CURRENTLY LAYING DOWN IN BED, EYES CLOSED, RESPIRATIONS EASY AND REGULAR, NO SIGNS OR SYMPTOMS OF DISTRESS NOTED. P-CONTINUE TO MONITOR MOODS AND BEHAVIORS. PROVIDE 1:1 WITH SUPPORT NEEDED. ENCOURAGE MEDICATION COMPLIANCE AND EDUCATE. MAINTAIN Q 15 MIN SAFETY CHECKS.
--- NOTE | 2019-10-05 23:47 | NUR ---
24 HOUR CHART CHECK COMPLETED.
--- NOTE | 2019-10-06 03:56 | NUR ---
Upon discharge recommend patient to follow up for wound care in outpatient setting continue current wound care orders at discharging facility.
--- NOTE | 2019-10-06 07:35 | NUR ---
PHYSICAL THERAPY Patient seen this am for therapy visit and was supine in bed upon therapist arrival. Patient identified by name / and reports no new c/o's at this time. Patient still presents with increased L LE tightness and tolerated PROM, all planes to increase ROM. Patient transfers supine to sit EOB with MIN A, demonstrating increased difficulty secondary to L UE deficits. Patient needed therapist assist to Angelo / Doff L LE KAFO to complete sit to stand / SPT to w/c, CENTRALIZED TRAFFIC CONTROL OPERATOR/CGA. Patient remained in w/c without KAFO and black sneekers, transported to activity room for breakfast. Patient remained at table in activity room under [facility] staff Supervision. Will continue per POC as tolerated, total treatment time 14 minutes. Cory Sánchez, DROP WIRE STRINGER
--- NOTE | 2019-10-06 07:45 | NUR ---
OT NOTE Pt was seen this A.M. 1:1 for 20 minute OT session with ERP PM and nursing staff present for observation only. Upon arrival pt was supine in bed. Pt identified by name and and had complaints of increased fatigue. Pt's L hand was closed fisted with palm shield still donned from previous day with an improper fit. Pt had a mild skin impression from strap so pt was educated that shield was going to be left off for now. PROM completed to L digits and wrist over all planes of motion for multiple reps. Pt then transferred supine to sit EOB with Silvia for assist with UB. Pt's L leg brace was donned and white tennis donned. Sit to stand completed from bed level with Silvia followed by standing pivot to the w/c with CGA for safety. White shoes doffed and black shoes donned. Pt was left sitting upright in the w/c in the dining short under U staff supervision. White shoes and straight cane returned to nursing staff and locked up. Continue with rec D/C plan to SNF. BRYAN Rockwell/Negra
[2019-10-06 07:56] VITALS: BP 121/67
--- NOTE | 2019-10-06 08:00 | NUR ---
Treatment Plan meeting was held with Dr. Baird, RN, MECHANICAL SPREADER OPERATOR-S and Workers Compensation Analyst. Plan for discharge to [facility] once Precert is obtained. Precert remains Pending.
--- NOTE | 2019-10-06 09:06 | NUR ---
SPOKE WITH DR KAUFMAN AT [phone], ADVISED THAT THIS NURSE WILL ATTEMPT AN IV BUT PT WAS NOT HAPPY WITH LAB DRAW THIS MORNING.
--- NOTE | 2019-10-06 10:23 | NUR ---
P: PT IRRITABLE WITH STAFF. PT YELLING OUT. PT CONTINUOUSLY ASKING TO GO TO BED, ADVISED THAT THE DR WOULD LIKE FOR HIM TO STAY UP D/T PT COMPLAINING ABOUT HAVING TROUBLE SLEEPING AT NIGHT. PT REFUSING TO PARTICIPATE IN GROUPS/ACTIVITIES. PT ATTEMPTING TO MOVE AWAY FROM STAFF WHILE PERFORMING CARE STATING "IM GOING TO FALL. I: PROVIDE EMOTIONAL SUPPORT AND 1:1 FOR PT TO VOICE FEELINGS, ENCOURAGE MED COMPLIANCE, MONITOR PT BEHAVIORS ON Q15 MIN SAFETY CHECKS, ENCOURAGE GROUP PARTICIPATION AND SOCIALIZATION R: PT ALERT TO PERSON, PLACE, TIME AND SITUATION. PT REMAINS IRRITABLE WITH STAFF. PT IN GROUP ROOM DURING GROUP, PT IS NOT ACTIVELY PARTICIPATING. NO HALLUCINATIONS OR DELUSIONS NOTED. PT DENIES ANY SUICIDAL THOUGHTS. PT UP TO WHEELCHAIR, REQUIRES 2 STAFF ASSIST FOR TRANSFERS. PT CONTINENT OF BOWEL AND BLADDER. P: MONITOR PT BEHAVIORS ON Q15 MIN SAFETY CHECKS, ENCOURAGE MED COMPLIANCE AND PROVIDE MED EDUCATION, ENCOURAGE GROUP PARTICIPATION AND SOCIALIZATION, PROVIDE EMOTIONAL SUPPORT AND 1:1 FOR PT TO VOICE FEELINGS
--- NOTE | 2019-10-06 14:43 | NUR ---
OCCUPATIONAL THERAPY CO-SIGN I approve of the Occupational Therapy notes written above. CHRISTY JUNIOR, OTR/L
--- NOTE | 2019-10-06 14:44 | NUR ---
PT REFUSED DRESSING CHANGE TO ANKLE AT THIS TIME. PT IRRITABLE WITH STAFF. WILL REAPPROACH AT A LATER TIME.
--- NOTE | 2019-10-06 14:51 | NUR ---
DR FONG ON UNIT TO ASSESS PT, UPDATE PROVIDED.
[2019-10-06 20:00] VITALS: BP 128/74
--- NOTE | 2019-10-06 21:13 | NUR ---
Patient alert and oriented to person,place,time and situation. Mood depressed. Patient denies SI/HI at this time. No overt s/s of any responding to internal stimuli noted. Patient more interactive with staff and other patients.Patient in diningroom eating snacks and watching a movie on TV with other patients. Patient compliant with HS medications without any difficulty. Provided 1:1 for therapeutic communication and emotional support. Plan to continue to encourage medication compliance. Also continue to provide emotional support and therapeutic communication. Will continue to monitor moods/behaviors. Q 15 minute safety checks continued and maintained. See [facility] flowsheet for further documentation.
--- NOTE | 2019-10-07 05:45 | NUR ---
Patient slept approx. 8 hours throughout shift. Q 15 minute safety checks continued and maintained.
--- NOTE | 2019-10-07 07:35 | NUR ---
PHYSICAL THERAPY Patient seen this am for therapy visit and was just awakening supine in bed upon therapist arrival. Patient identified by name / and presents with L UE deficits / L LE increased hypertonicity. OT conventions assistant was also present for observation only this session as patient tolerated PROM LE all planes to increase ROM and was able to complete L LE AROM, supine abduction, hip flexion x 10 reps each. Patient reports decreased c/o L hip pain following prolonged L Gastroc / Hamstring stretch. Patient transfers supine to sit EOB with MOD A x 1, then sit to stand MIN/INSTRUCTIONAL DESIGN CONSULTANT, completing SPT to w/c INSTRUCTIONAL DESIGN CONSULTANT/MIN A. Patient demonstrates increased difficulty with L LE foot advance and transported to activity room for breakfast. Patient remained at table under [facility] staff Supervision. Will continue per POC as tolerated, total treatment time 14 minutes. Cory Sánchez, PICTURE FRAMER
--- NOTE | 2019-10-07 07:45 | NUR ---
OT NOTE Pt was seen this A.M. 1:1 for 20 minute OT session with ETIQUETTE TEACHER and nursing staff present for observation only. Upon arrival pt was supine in bed. Pt identified by name and and had no complaints at this time. Pt presented with closed fist to L hand, when hand was opened a mod odor was present with skin normal in color compared to the R hand, moist, and no open areas. PROM completed to the L digits and wrist over all planes of motion for multiple reps and then hand hygiene was completed with soap and water and dried with a towel. Pt's L hand palm shield was then donned for skin protection. Pt transferred supine to sit EOB with Silvia for assist with UB. Sit to stand completed from bed level with Silvia followed by standing pivot from the EOB to the w/c with Silvia. Pt was left sitting upright in the w/c in the dining short under [facility] staff supervision. Pt's nurse notified of palm shield and wearing schedule. Continue with rec D/C plan to SNF. POP Rockwell
--- NOTE | 2019-10-07 08:00 | NUR ---
Treatment plan meeting was held with Dr. Baird, RN, AT, CONSTRUCTION FRAMER-S and Continuous Mining Machine Operator. Plan for discharge when Precert returns for SNF.
[2019-10-07 08:15] VITALS: BP 124/80
--- NOTE | 2019-10-07 09:53 | NUR ---
DR RAMOS ON UNIT TO ASSESS PT, UPDATE PROVIDED.
--- NOTE | 2019-10-07 10:47 | NUR ---
SPOKE WITH DR RAMOS AT [phone] RE: PT DISCHARGE FOR TODAY AND MEDICAL MEDS NEEDING COMPLETED.
[2019-10-07] MEDS ORDERED: Synthroid,Levo25 MCG PO (10:58)
[2019-10-07] MEDS ORDERED: AMANTADINE HCL100 M2 PO (10:58)
[2019-10-07] MEDS ORDERED: ATARAX,VISTARIL50 MG PO (10:58)
[2019-10-07] MEDS ORDERED: DIVALPROEX SOD500 MG PO (10:58)
[2019-10-07] MEDS ORDERED: GABAPENTIN800 MG PO (10:58)
[2019-10-07] MEDS ORDERED: Lidoderm 5% Patch T (10:58)
[2019-10-07] MEDS ORDERED: ROZEREM8 MG PO (10:58)
[2019-10-07] MEDS ORDERED: DULOXETINE HCL60 MG PO (10:58)
[2019-10-07] MEDS ORDERED: VITAMIN D32000 UNI1 PO (10:58)
--- NOTE | 2019-10-07 11:07 | NUR ---
Received Call From Paula at [facility]. Precert returns. Pt. is approved for Nursing Facility Placement. Pt. will discharge today.Notified Francy of Planned discharge for today. Notified Case Management.
--- NOTE | 2019-10-07 11:20 | NUR ---
Spoke with Pt. Francy via telephone. Notified of Pt. precert returning and Discharge today.
--- NOTE | 2019-10-07 11:31 | NUR ---
Transportation arranged with [facility] to Transport with Pmp Certified Project Manager time 3:00 p.m. Will notify at 12:30 Visiting.
--- NOTE | 2019-10-07 11:39 | NUR ---
Discharge Paperwork Faxed to [facility] Attn: Paula .
--- NOTE | 2019-10-07 11:47 | NUR ---
AM GROUP PT WAS IN A PRIVATE SESSION WITH [employer] WITH CHAIR AND COUCH MAKER.
--- NOTE | 2019-10-07 13:33 | NUR ---
NURSE TO NURSE REPORT GIVEN TO AAYUSH AT [facility]. PT ALERT TO PERSON, PLACE, TIME AND SITUATION. PT MED COMPLIANT WITHOUT DIFFICULTY, MED EDUCATION PROVIDED. PT CALM, MOOD IS STABLE. PT NOTED TO BE IRRITABLE AT TIMES. NO HALLUCINATIONS OR DELUSIONS NOTED. PT DENIES ANY SUICIDAL/HOMICIDAL THOUGHTS. PT UP TO A WHEELCHAIR, WILL AMBULATE WITH THERAPY, USING A CANE AND LEG BRACE AND 1 STAFF ASSIST. PT CONTINENT OF BOWEL AND BLADDER, LAST BM 10/07/19. PT HAS OPTIFOAM TO LEFT ANKLE FOR PROTECTION, ALSO HAS AN OLD SKIN TEAR TO LEFT FOREARM. PLAN IS TO MONITOR PT BEAHVIORS ON Q15 MIN SAFETY CHECKS, AND PREPARE FOR DISCHARGE TO [facility].
--- NOTE | 2019-10-07 15:05 | NUR ---
DR FONG ON UNIT TO SEE PATIENT
--- NOTE | 2019-10-07 15:40 | NUR ---
PM GROUP PT DID NOT ATTEND AFTERNOON GROUP THERAPY. PT WAS READYING FOR DISCHARGE FROM THE UNIT THIS AFTERNOON.
--- NOTE | 2019-10-07 15:54 | NUR ---
OCCUPATIONAL THERAPY CO-SIGN I approve of the Occupational Therapy notes written above. ALLA VERAS OTR/Negra
--- NOTE | 2019-10-07 16:01 | NUR ---
Group therapy this AM. Pt participated fully in discussion about gratitude and the power of thankfulness. Discussed principles of gratitude and actions to incorporate the principles. Discussed the use of a gratitude journal. Hand-outs provided and gratitude journal sheets provided. Pt was supportive of his peers.
--- NOTE | 2019-10-07 16:03 | NUR ---
Patient discharging to [facility] for skilled level of care. Follow-up will be with Dr Baird, visiting psychiatrist and Lottie Gross PhD. While at [facility], pt's mood improved. He was no longer feeling suicidal and was not exhibiting difficult behaviors. Pt voiced that he had hope for his future prior to his discharge. Pt participated in the programming.
--- NOTE | 2019-10-07 16:21 | NUR ---
PATIENT DISCHARGED FROM UNIT WITH BELONGINGS. PATIENT TRANSFERRED FROM UNIT VIA STRETCHER WITH TWO ATTENDANTS AND OUTER DIAMETER GRINDER TOOL X 1. PATIENT BELONGINGS SENT WITH PATIENT. PATIENT STABLE AT TIME OF DISCHAGE
--- NOTE | 2019-10-08 10:48 | NUR ---
PHYSICAL THERAPY CO-SIGN I approve of the Physical Therapy notes written above. Loida Schaefer PT
== END 2019-10-07 16:20 | disposition other institution (70) | DRG 758 ==
LOC: ED 12:48 → 3N 17:09
PROVIDERS: Emergency Medicine; Internal Medicine; Registered Nurse; ADMIT Psychiatry & Neurology Psychiatry
DX: F63.81 Intermittent explosive disorder (principal); F33.2 Major depressive disorder, recurrent severe without psychotic features; I10 Essential (primary) hypertension; E87.6 Hypokalemia; R74.8 Abnormal levels of other serum enzymes; R56.9 Unspecified convulsions; Y84.8 Other medical procedures as the cause of abnormal reaction of the patient, or of later complication, without mention of misadventure at the time of the procedure; I61.9 Nontraumatic intracerebral hemorrhage, unspecified; R45.851 Suicidal ideations; T80.89XA Other complications following infusion, transfusion and therapeutic injection, initial encounter; E03.9 Hypothyroidism, unspecified; I25.10 Atherosclerotic heart disease of native coronary artery without angina pectoris; E78.5 Hyperlipidemia, unspecified; I25.2 Old myocardial infarction; Z82.49 Family history of ischemic heart disease and other diseases of the circulatory system; Z83.3 Family history of diabetes mellitus; Z79.899 Other long term (current) drug therapy; Z86.73 Personal history of transient ischemic attack (TIA), and cerebral infarction without residual deficits; Z88.6 Allergy status to analgesic agent; Z88.0 Allergy status to penicillin; Z82.5 Family history of asthma and other chronic lower respiratory diseases

== ENCOUNTER 2021-01-23 13:43 | Inpatient (IN) | payer MEDICARE, MEDICAID ==
[2021-01-23] VITALS (8 sets, daily range): BP systolic 139–162; BP diastolic 84–98
[~2021-01-23] VITALS: Ht 177.8 cm; Wt 119.5 kg
[~2021-01-23 13:43] MED LIST changes: +AMANTADINE HCL100 M2 PO; +ATARAX,VISTARIL50 MG PO; +DEPAKOTE DR500 MG PO; +DIVALPROEX SOD500 MG PO; +DULOXETINE HCL60 MG PO; +EFFEXOR XR150 M1 PO; +GABAPENTIN800 MG PO; +GOLD BOND MEDI113 G2 T; +Lidoderm 5% Patch T; +ROZEREM8 MG PO; +Synthroid,Levo25 MCG PO; +VITAMIN D32000 UNI1 PO
[2021-01-23 14:43] LABS: BASO # 0.1 10*3/uL (0.0-0.1); BASO % 0.5 % (0.0-1.0); EOS % 0.1 % (1.0-4.0); HEMATOCRIT 45.5 % (42.0-52.0); LYMPH # 1.9 10*3/uL (1.3-4.4); MEAN CELL VOLUME 90.6 fl (80.0-94.0); MEAN CORPUSCULAR HGB 29.3 pg (27.0-31.0); MEAN CORPUSCULAR HGB CONC 32.3 g/dl (33.0-37.0); MEAN PLATELET VOLUME 10.4 fl (9.6-12.3); MONO # 1.3 10*3/uL (0.1-1.0); MONO % 11.7 % (3.0-9.0); NEUT # 7.7 10*3/uL (2.3-7.9); NEUT % 70.2 % (47.0-73.0); PLATELET COUNT AUTOMATED 214 10*3/uL (130-400); RED BLOOD COUNT 5.02 10*6/uL (4.50-5.90); RED CELL DISTRI WIDTH 15.6 % (0-14.5); WHITE BLOOD COUNT 10.9 10*3/uL (4.8-10.8)
[2021-01-23 14:59] LABS: ALBUMIN 3.1 gm/dl (3.1-4.5); BUN 16 mg/dl (7-24); CHLORIDE 103 mmol/L (98-107); CREATININE 0.98 mg/dL (0.70-1.30); LIPASE 53 U/L (73-393); POTASSIUM 3.8 mmol/L (3.5-5.1); SGOT/AST 34 IU/L (3-35); SGPT/ALT 77 U/L (12-78); SODIUM 135 mmol/L (136-145); TOTAL PROTEIN 7.7 gm/dL (6.4-8.2)
[2021-01-23 15:00] LABS: ALKALINE PHOSPHATASE 282 U/L (45-117)
[2021-01-23] MEDS ORDERED: KEPPRA500 MG PO (15:02)
[2021-01-23] MEDS ORDERED: ZETIA10 MG PO (15:02)
[2021-01-23 15:06] LABS: VALPROIC ACID (DEPAKENE) 38.9 ug/ml (50-100)
[2021-01-23 15:12] LABS: TROPONIN I < 0.015 ng/ml (<0.045)
[2021-01-23 16:22] LABS: BILIRUBIN Negative (Negative); BLOOD Negative (Negative); CLARITY Clear (Clear); COLOR Yellow (Yellow); GLUCOSE 3+ (Negative); KETONE Negative (Negative); LEUKO ESTERASE Negative (Negative); NITRITE Negative (Negative); PH 6.5 (4.5-8.0); SPECIFIC GRAVITY 1.015 (1.001-1.030); UROBILINOGEN 0.2 E.U./dl (0.0-1.0)
[2021-01-23 16:39] LABS: COARSE GRANULAR CAST 0-2; HYALINE CAST 0-2; RBC 0-2 rbc/hpf (0-2); WBC 0-2 wbc/hpf (0-5)
[2021-01-23 20:09] LABS: URINE AMPHETAMINES < 1000 (1000ng/ml); URINE BARBITURATES < 200 (200ng/ml); URINE BENZODIAZEPINES < 200 (200ng/ml); URINE CANNABINOIDS (THC) < 50 (50ng/ml); URINE COCAINE < 300 (300ng/ml); URINE METHADONE < 300 (300ng/ml); URINE OPIATES < 300 (300ng/ml)
[2021-01-23 20:21] LABS: URINE PHENCYCLIDINE < 25 (25ng/ml)
[2021-01-24 00:33] VITALS: BP 134/91
[2021-01-24 06:19] LABS: BASO # 0.1 10*3/uL (0.0-0.1); BASO % 0.6 % (0.0-1.0); EOS # 0.1 10*3/uL (0.0-0.4); EOS % 1.5 % (1.0-4.0); HEMATOCRIT 42.5 % (42.0-52.0); MEAN CELL VOLUME 88.7 fl (80.0-94.0); MEAN CORPUSCULAR HGB 29.2 pg (27.0-31.0); MEAN CORPUSCULAR HGB CONC 32.9 g/dl (33.0-37.0); MEAN PLATELET VOLUME 9.9 fl (9.6-12.3); MONO # 1.3 10*3/uL (0.1-1.0); MONO % 13.5 % (3.0-9.0); NEUT % 42.2 % (47.0-73.0); PLATELET COUNT AUTOMATED 203 10*3/uL (130-400); RED BLOOD COUNT 4.79 10*6/uL (4.50-5.90); RED CELL DISTRI WIDTH 15.4 % (0-14.5); WHITE BLOOD COUNT 9.4 10*3/uL (4.8-10.8)
[2021-01-24 06:44] LABS: ALBUMIN 2.9 gm/dl (3.1-4.5); ALKALINE PHOSPHATASE 260 U/L (45-117); BUN 12 mg/dl (7-24); CHLORIDE 102 mmol/L (98-107); CREATININE 0.78 mg/dL (0.70-1.30); POTASSIUM 3.6 mmol/L (3.5-5.1); SGOT/AST 25 IU/L (3-35); SGPT/ALT 62 U/L (12-78); SODIUM 135 mmol/L (136-145); TOTAL PROTEIN 7.1 gm/dL (6.4-8.2)
[2021-01-24 08:00] VITALS: BP 134/83
[2021-01-24] MEDS ORDERED: CYMBALTA60 MG PO (10:14)
[2021-01-24] MEDS ORDERED: NAPROSYN500 MG PO (10:15)
[2021-01-24] MEDS ORDERED: ULTRAM50 MG PO (10:15)
[2021-01-24] MEDS ORDERED: BACLOFEN20 M1 PO (10:16)
[2021-01-24] MEDS ORDERED: ATARAX,VISTARIL50 MG PO (10:18)
[2021-01-24] MEDS ORDERED: Synthroid,Levo50 MCG PO (11:21)
[2021-01-24 12:00] VITALS: BP 130/78
[2021-01-24 16:00] VITALS: BP 138/78
[2021-01-24 20:00] VITALS: BP 169/111
[2021-01-25] VITALS: BP 127/83
[2021-01-25 08:00] VITALS: BP 131/94
[2021-01-25 09:49] LABS: BASO # 0.1 10*3/uL (0.0-0.1); BASO % 0.9 % (0.0-1.0); EOS # 0.2 10*3/uL (0.0-0.4); EOS % 1.7 % (1.0-4.0); HEMATOCRIT 45.9 % (42.0-52.0); LYMPH # 3.3 10*3/uL (1.3-4.4); LYMPH % 36.8 % (27.0-41.0); MEAN CELL VOLUME 89.8 fl (80.0-94.0); MEAN CORPUSCULAR HGB 29.5 pg (27.0-31.0); MEAN CORPUSCULAR HGB CONC 32.9 g/dl (33.0-37.0); MEAN PLATELET VOLUME 9.8 fl (9.6-12.3); MONO % 11.5 % (3.0-9.0); NEUT # 4.5 10*3/uL (2.3-7.9); PLATELET COUNT AUTOMATED 219 10*3/uL (130-400); RED BLOOD COUNT 5.11 10*6/uL (4.50-5.90); RED CELL DISTRI WIDTH 15.7 % (0-14.5); WHITE BLOOD COUNT 9.1 10*3/uL (4.8-10.8)
[2021-01-25 10:02] LABS: BUN 9 mg/dl (7-24); CHLORIDE 101 mmol/L (98-107); CREATININE 0.77 mg/dL (0.70-1.30); POTASSIUM 3.8 mmol/L (3.5-5.1); SODIUM 135 mmol/L (136-145)
[2021-01-25 12:00] VITALS: BP 135/86
[2021-01-25 16:00] VITALS: BP 133/74
[2021-01-25 20:00] VITALS: BP 120/77
[2021-01-26] VITALS: BP 154/93
[2021-01-26 06:15] LABS: BASO # 0.1 10*3/uL (0.0-0.1); EOS # 0.2 10*3/uL (0.0-0.4); EOS % 2.9 % (1.0-4.0); HEMATOCRIT 43.5 % (42.0-52.0); LYMPH # 2.9 10*3/uL (1.3-4.4); LYMPH % 48.3 % (27.0-41.0); MEAN CELL VOLUME 89.1 fl (80.0-94.0); MEAN CORPUSCULAR HGB 29.5 pg (27.0-31.0); MEAN CORPUSCULAR HGB CONC 33.1 g/dl (33.0-37.0); MEAN PLATELET VOLUME 9.9 fl (9.6-12.3); MONO # 0.8 10*3/uL (0.1-1.0); NEUT % 33.5 % (47.0-73.0); PLATELET COUNT AUTOMATED 197 10*3/uL (130-400); RED BLOOD COUNT 4.88 10*6/uL (4.50-5.90); RED CELL DISTRI WIDTH 15.2 % (0-14.5); WHITE BLOOD COUNT 5.9 10*3/uL (4.8-10.8)
[2021-01-26 06:23] LABS: BUN 10 mg/dl (7-24); CHLORIDE 101 mmol/L (98-107); CREATININE 0.68 mg/dL (0.70-1.30); POTASSIUM 3.4 mmol/L (3.5-5.1); SGOT/AST 27 IU/L (3-35); SGPT/ALT 56 U/L (12-78); SODIUM 135 mmol/L (136-145)
[2021-01-26 06:27] LABS: ALKALINE PHOSPHATASE 230 U/L (45-117); CPK 332 U/L (39-308); TOTAL PROTEIN 7.1 gm/dL (6.4-8.2)
[2021-01-26 08:00] VITALS: BP 150/86; BP 158/100
[2021-01-26 12:00] VITALS: BP 150/91
[2021-01-26 16:00] VITALS: BP 148/95
[2021-01-26 20:00] VITALS: BP 118/77
[2021-01-27] VITALS: BP 136/76
[2021-01-27 06:36] LABS: BASO # 0.1 10*3/uL (0.0-0.1); BASO % 0.8 % (0.0-1.0); EOS # 0.2 10*3/uL (0.0-0.4); EOS % 2.7 % (1.0-4.0); HEMATOCRIT 42.6 % (42.0-52.0); LYMPH # 3.2 10*3/uL (1.3-4.4); LYMPH % 50.4 % (27.0-41.0); MEAN CELL VOLUME 90.4 fl (80.0-94.0); MEAN CORPUSCULAR HGB 29.5 pg (27.0-31.0); MEAN CORPUSCULAR HGB CONC 32.6 g/dl (33.0-37.0); MONO # 0.7 10*3/uL (0.1-1.0); MONO % 10.7 % (3.0-9.0); NEUT # 2.2 10*3/uL (2.3-7.9); NEUT % 35.2 % (47.0-73.0); PLATELET COUNT AUTOMATED 206 10*3/uL (130-400); RED BLOOD COUNT 4.71 10*6/uL (4.50-5.90); RED CELL DISTRI WIDTH 15.4 % (0-14.5); WHITE BLOOD COUNT 6.3 10*3/uL (4.8-10.8)
[2021-01-27 06:52] LABS: ALBUMIN 2.8 gm/dl (3.1-4.5); ALKALINE PHOSPHATASE 245 U/L (45-117); BILIRUBIN, DIRECT 0.2 mg/dL (0.0-0.2); BUN 11 mg/dl (7-24); CHLORIDE 104 mmol/L (98-107); CREATININE 0.73 mg/dL (0.70-1.30); POTASSIUM 3.8 mmol/L (3.5-5.1); SGOT/AST 28 IU/L (3-35); SGPT/ALT 64 U/L (12-78); SODIUM 134 mmol/L (136-145); TOTAL PROTEIN 7.3 gm/dL (6.4-8.2)
[2021-01-27 06:53] LABS: CPK 244 U/L (39-308)
[2021-01-27 08:00] VITALS: BP 150/98
[2021-01-27 12:00] VITALS: BP 151/75
[2021-01-27 16:08] VITALS: BP 140/85
[2021-01-27 20:00] VITALS: BP 131/83
[2021-01-28] VITALS: BP 148/93
[2021-01-28 08:00] VITALS: BP 129/79
[2021-01-28 12:00] VITALS: BP 167/97
[2021-01-28 16:00] VITALS: BP 153/94
[2021-01-28 20:00] VITALS: BP 153/74
[2021-01-29] VITALS: BP 120/94
[2021-01-29 06:19] LABS: BUN 13 mg/dl (7-24); CHLORIDE 101 mmol/L (98-107); CREATININE 0.73 mg/dL (0.70-1.30); POTASSIUM 3.6 mmol/L (3.5-5.1); SODIUM 137 mmol/L (136-145)
[2021-01-29 06:48] LABS: BASO # 0.1 10*3/uL (0.0-0.1); BASO % 0.7 % (0.0-1.0); EOS # 0.2 10*3/uL (0.0-0.4); EOS % 2.5 % (1.0-4.0); HEMATOCRIT 42.8 % (42.0-52.0); LYMPH # 3.6 10*3/uL (1.3-4.4); LYMPH % 52.9 % (27.0-41.0); MEAN CELL VOLUME 89.4 fl (80.0-94.0); MEAN CORPUSCULAR HGB 29.2 pg (27.0-31.0); MEAN CORPUSCULAR HGB CONC 32.7 g/dl (33.0-37.0); MEAN PLATELET VOLUME 10.2 fl (9.6-12.3); MONO # 0.9 10*3/uL (0.1-1.0); MONO % 12.6 % (3.0-9.0); NEUT # 2.1 10*3/uL (2.3-7.9); PLATELET COUNT AUTOMATED 212 10*3/uL (130-400); RED BLOOD COUNT 4.79 10*6/uL (4.50-5.90); RED CELL DISTRI WIDTH 15.4 % (0-14.5); WHITE BLOOD COUNT 6.8 10*3/uL (4.8-10.8)
[2021-01-29 08:00] VITALS: BP 155/85
[2021-01-29 11:39] VITALS: BP 139/86
[2021-01-29] MEDS ORDERED: TAMSULOSIN HCL0.4 MG PO (15:06)
[2021-01-29] MEDS ORDERED: LEVETIRACE500 MG/5 M PO ×3 (15:08→15:47)
[2021-01-29] MEDS ORDERED: DIVALPROEX SOD500 MG PO (15:09)
[2021-01-29] MEDS ORDERED: DIVALPROEX SOD250 MG PO (15:10)
[2021-01-29] MEDS ORDERED: ONDANSETRON4 MG/2 M3 IV (15:11)
[2021-01-29] MEDS ORDERED: LEVETIRACETAM750 MG PO (15:49)
[2021-01-29 16:08] VITALS: BP 142/96
== END 2021-01-29 17:28 | DRG 65 ==
LOC: ED 13:43 → EDHOLD 20:45 → 5E 20:45 → EDHOLD 21:08 → 5E 01-24 00:27
PROVIDERS: Emergency Medicine; Internal Medicine; Internal Medicine Gastroenterology; Internal Medicine Nephrology; Social Worker Clinical; ADMIT Internal Medicine; ATTEND Internal Medicine
PROC: 0HBRXZZ Excision of Toe Nail, External Approach (ICD-10-PCS; 2021-01-25)
PROC: 0HBRXZZ Excision of Toe Nail, External Approach (ICD-10-PCS; 2021-01-25)
PROC: 0HBRXZZ Excision of Toe Nail, External Approach (ICD-10-PCS; 2021-01-25)
PROC: 0HBRXZZ Excision of Toe Nail, External Approach (ICD-10-PCS; 2021-01-25)
PROC: 0HBRXZZ Excision of Toe Nail, External Approach (ICD-10-PCS; 2021-01-25)
PROC: 0HBRXZZ Excision of Toe Nail, External Approach (ICD-10-PCS; 2021-01-25)
PROC: 0HBRXZZ Excision of Toe Nail, External Approach (ICD-10-PCS; 2021-01-25)
PROC: 0HBRXZZ Excision of Toe Nail, External Approach (ICD-10-PCS; 2021-01-25)
PROC: 0HBRXZZ Excision of Toe Nail, External Approach (ICD-10-PCS; 2021-01-25)
PROC: 0HBRXZZ Excision of Toe Nail, External Approach (ICD-10-PCS; 2021-01-25)
PROC: 4A02XM4 Measurement of Cardiac Total Activity, External Approach (ICD-10-PCS; principal; 2021-01-26)
PROC: 3E073KZ Introduction of Other Diagnostic Substance into Coronary Artery, Percutaneous Approach (ICD-10-PCS; 2021-01-26)
DX: I61.9 Nontraumatic intracerebral hemorrhage, unspecified (principal); E87.2 Acidosis; E44.0 Moderate protein-calorie malnutrition; M62.82 Rhabdomyolysis; I69.354 Hemiplegia and hemiparesis following cerebral infarction affecting left non-dominant side; K52.1 Toxic gastroenteritis and colitis; E83.41 Hypermagnesemia; E78.5 Hyperlipidemia, unspecified; E03.9 Hypothyroidism, unspecified; I25.10 Atherosclerotic heart disease of native coronary artery without angina pectoris; R00.0 Tachycardia, unspecified; D72.829 Elevated white blood cell count, unspecified; R73.9 Hyperglycemia, unspecified; R74.8 Abnormal levels of other serum enzymes; K76.0 Fatty (change of) liver, not elsewhere classified; K83.8 Other specified diseases of biliary tract; M25.511 Pain in right shoulder; R33.9 Retention of urine, unspecified; G40.909 Epilepsy, unspecified, not intractable, without status epilepticus; I10 Essential (primary) hypertension; G93.89 Other specified disorders of brain; X58.XXXA Exposure to other specified factors, initial encounter; Y93.89 Activity, other specified; Y92.89 Other specified places as the place of occurrence of the external cause; Y99.8 Other external cause status; Z88.0 Allergy status to penicillin; Z88.6 Allergy status to analgesic agent; Z82.49 Family history of ischemic heart disease and other diseases of the circulatory system; Z83.3 Family history of diabetes mellitus; Z82.5 Family history of asthma and other chronic lower respiratory diseases; I25.2 Old myocardial infarction; Z79.899 Other long term (current) drug therapy; Z95.5 Presence of coronary angioplasty implant and graft; Z87.891 Personal history of nicotine dependence; T42.6X5A Adverse effect of other antiepileptic and sedative-hypnotic drugs, initial encounter; Z20.822 Contact with and (suspected) exposure to COVID-19; Z68.37 Body mass index [BMI] 37.0-37.9, adult

== ENCOUNTER 2021-02-25 13:34 | Inpatient (IN) | payer MEDICARE, MEDICAID ==
[~2021-02-25] VITALS: Ht 177.8 cm; Wt 107.2 kg
[~2021-02-25 13:34] MED LIST changes: +CYMBALTA60 MG PO; +DIVALPROEX SOD250 MG PO; +KEPPRA500 MG PO; +LEVETIRACE500 MG/5 M PO; +LEVETIRACETAM750 MG PO; +NAPROSYN500 MG PO; +NORVASC5 MG PO; +ONDANSETRON4 MG/2 M3 IV; +Synthroid,Levo50 MCG PO; +TAMSULOSIN HCL0.4 MG PO; +ULTRAM50 MG PO; +ZETIA10 MG PO
[2021-02-25 13:39] VITALS: BP 121/75
[2021-02-25 14:11] LABS: BASO # 0.1 10*3/uL (0.0-0.1); BASO % 0.7 % (0.0-1.0); EOS # 0.1 10*3/uL (0.0-0.4); EOS % 1.9 % (1.0-4.0); HEMATOCRIT 46.7 % (42.0-52.0); LYMPH # 2.4 10*3/uL (1.3-4.4); LYMPH % 33.9 % (27.0-41.0); MEAN CELL VOLUME 90.7 fl (80.0-94.0); MEAN CORPUSCULAR HGB 29.7 pg (27.0-31.0); MEAN CORPUSCULAR HGB CONC 32.8 g/dl (33.0-37.0); MEAN PLATELET VOLUME 9.9 fl (9.6-12.3); MONO # 0.7 10*3/uL (0.1-1.0); MONO % 9.7 % (3.0-9.0); NEUT # 3.8 10*3/uL (2.3-7.9); NEUT % 53.7 % (47.0-73.0); PLATELET COUNT AUTOMATED 205 10*3/uL (130-400); RED BLOOD COUNT 5.15 10*6/uL (4.50-5.90); RED CELL DISTRI WIDTH 15.5 % (0-14.5)
[2021-02-25 14:35] LABS: ALKALINE PHOSPHATASE 244 U/L (45-117); BUN 14 mg/dl (7-24); CHLORIDE 106 mmol/L (98-107); CREATININE 0.73 mg/dL (0.70-1.30); LIPASE 54 U/L (73-393); POTASSIUM 3.6 mmol/L (3.5-5.1); SGOT/AST 17 IU/L (3-35); SGPT/ALT 52 U/L (12-78); SODIUM 136 mmol/L (136-145); TOTAL PROTEIN 7.4 gm/dL (6.4-8.2)
[2021-02-25 14:36] LABS: TROPONIN I < 0.015 ng/ml (<0.045)
[2021-02-25 15:02] VITALS: BP 126/68
[2021-02-25 16:30] VITALS: BP 128/89
[2021-02-25 16:38] LABS: BILIRUBIN Negative (Negative); BLOOD Negative (Negative); CLARITY Clear (Clear); COLOR Yellow (Yellow); GLUCOSE 1+ (Negative); KETONE Trace (Negative); LEUKO ESTERASE Negative (Negative); NITRITE Negative (Negative); SPECIFIC GRAVITY 1.025 (1.001-1.030)
[2021-02-25 17:09] LABS: RBC 0-2 rbc/hpf (0-2); WBC 0-2 wbc/hpf (0-5)
[2021-02-25] MEDS ORDERED: ZESTRIL20 MG PO (17:44)
[2021-02-25] MEDS ORDERED: PERCOCET 5-3251 EACH PO (17:45)
[2021-02-25 20:00] VITALS: BP 125/81
[2021-02-26] VITALS: BP 118/67
[2021-02-26 08:00] VITALS: BP 117/80
[2021-02-26 11:02] LABS: VITAMIN D, 25-HYDROXY 24.4 ng/mL (30-100)
[2021-02-26 12:00] VITALS: BP 142/84
[2021-02-26 14:00] VITALS: BP 142/84
[2021-02-26 16:00] VITALS: BP 147/75
[2021-02-26 20:00] VITALS: BP 138/79
[2021-02-27] VITALS: BP 127/79
[2021-02-27 08:00] VITALS: BP 166/89
[2021-02-27 12:00] VITALS: BP 156/81
[2021-02-27 16:00] VITALS: BP 136/91
== END 2021-02-27 16:38 | DRG 948 ==
LOC: ED 13:34 → EDHOLD 15:45 → 5E 15:45
PROVIDERS: Counselor Professional; Emergency Medicine; ADMIT Internal Medicine; ATTEND Internal Medicine
DX: R53.1 Weakness (principal); E87.2 Acidosis; I69.354 Hemiplegia and hemiparesis following cerebral infarction affecting left non-dominant side; F33.3 Major depressive disorder, recurrent, severe with psychotic symptoms; R41.82 Altered mental status, unspecified; E55.9 Vitamin D deficiency, unspecified; B35.1 Tinea unguium; I25.10 Atherosclerotic heart disease of native coronary artery without angina pectoris; R82.4 Acetonuria; L85.3 Xerosis cutis; E03.9 Hypothyroidism, unspecified; E78.5 Hyperlipidemia, unspecified; K08.89 Other specified disorders of teeth and supporting structures; F63.81 Intermittent explosive disorder; F41.9 Anxiety disorder, unspecified; M54.9 Dorsalgia, unspecified; F63.9 Impulse disorder, unspecified; I10 Essential (primary) hypertension; Z88.0 Allergy status to penicillin; Z88.6 Allergy status to analgesic agent; Z95.5 Presence of coronary angioplasty implant and graft; Z82.49 Family history of ischemic heart disease and other diseases of the circulatory system; Z83.3 Family history of diabetes mellitus; Z82.5 Family history of asthma and other chronic lower respiratory diseases; I25.2 Old myocardial infarction; Z87.891 Personal history of nicotine dependence; Z79.899 Other long term (current) drug therapy

== ENCOUNTER 2021-02-27 11:58 | Inpatient (IN) | payer MEDICARE, MEDICAID ==
[~2021-02-27] VITALS: Ht 177.8 cm; Wt 108.4 kg
[~2021-02-27 11:58] MED LIST changes: +PERCOCET 5-3251 EACH PO; +ZESTRIL20 MG PO
[2021-02-27 17:03] VITALS: BP 135/90
[2021-02-27 19:30] VITALS: BP 136/78
[2021-02-27 19:55] VITALS: BP 114/83
[2021-02-28 02:31] LABS: CHOLESTEROL 211 mg/dL (<200); LDL CHOLESTEROL 128 mg/dL (9-159); TRIGLYCERIDES 247 mg/dl (<150)
[2021-02-28 08:00] VITALS: BP 145/79
[2021-02-28 20:00] VITALS: BP 112/64
[2021-03-01 07:46] VITALS: BP 135/69
[2021-03-01 20:00] VITALS: BP 137/64
[2021-03-02 07:18] VITALS: BP 127/85
[2021-03-02 20:00] VITALS: BP 138/92
[2021-03-03 07:01] VITALS: BP 126/80
[2021-03-03 20:07] VITALS: BP 132/86
[2021-03-04 07:34] VITALS: BP 128/84
[2021-03-04 16:06] VITALS: BP 148/88
[2021-03-04 16:48] LABS: BASO # 0.1 10*3/uL (0.0-0.1); BASO % 0.7 % (0.0-1.0); EOS # 0.2 10*3/uL (0.0-0.4); EOS % 2.6 % (1.0-4.0); HEMATOCRIT 46.6 % (42.0-52.0); LYMPH # 2.3 10*3/uL (1.3-4.4); LYMPH % 33.8 % (27.0-41.0); MEAN CELL VOLUME 93.4 fl (80.0-94.0); MEAN CORPUSCULAR HGB 29.9 pg (27.0-31.0); MEAN PLATELET VOLUME 10.3 fl (9.6-12.3); MONO # 0.8 10*3/uL (0.1-1.0); MONO % 11.8 % (3.0-9.0); NEUT # 3.5 10*3/uL (2.3-7.9); NEUT % 50.8 % (47.0-73.0); PLATELET COUNT AUTOMATED 183 10*3/uL (130-400); RED BLOOD COUNT 4.99 10*6/uL (4.50-5.90); RED CELL DISTRI WIDTH 14.9 % (0-14.5); WHITE BLOOD COUNT 6.9 10*3/uL (4.8-10.8)
[2021-03-04 17:02] LABS: ALBUMIN 2.9 gm/dl (3.1-4.5); ALKALINE PHOSPHATASE 267 U/L (45-117); BUN 12 mg/dl (7-24); CHLORIDE 107 mmol/L (98-107); CREATININE 0.68 mg/dL (0.70-1.30); POTASSIUM 3.6 mmol/L (3.5-5.1); SGOT/AST 19 IU/L (3-35); SGPT/ALT 43 U/L (12-78); SODIUM 140 mmol/L (136-145); TOTAL PROTEIN 7.1 gm/dL (6.4-8.2)
[2021-03-04 19:53] VITALS: BP 148/82
[2021-03-05 07:18] VITALS: BP 123/84
[2021-03-05 20:00] VITALS: BP 120/60
[2021-03-06 07:24] VITALS: BP 146/80
[2021-03-06 20:00] VITALS: BP 144/78
[2021-03-07 07:56] VITALS: BP 142/76
[2021-03-07 20:00] VITALS: BP 127/78
[2021-03-08 07:36] VITALS: BP 128/68
[2021-03-08 20:00] VITALS: BP 111/65
[2021-03-09 07:51] VITALS: BP 140/75
[2021-03-09 20:00] VITALS: BP 136/77
[2021-03-10 07:31] VITALS: BP 157/89
[2021-03-10 20:00] VITALS: BP 114/79
[2021-03-11 07:16] VITALS: BP 160/80
[2021-03-11 20:00] VITALS: BP 145/76
[2021-03-12 07:03] VITALS: BP 138/52
[2021-03-12] MEDS ORDERED: DIVALPROEX SOD250 MG PO (10:07)
[2021-03-12] MEDS ORDERED: DULOXETINE HCL60 MG PO (10:07)
[2021-03-12] MEDS ORDERED: LORAZEPAM0.5 MG PO (10:07)
[2021-03-12] MEDS ORDERED: RIVASTIGMINE1 EAC2 T (10:07)
[2021-03-12] MEDS ORDERED: QUETIAPINE FUM100 M3 PO (10:44)
[2021-03-13 15:11] LABS: NEURONTIN (GABAPENTIN) 4.9 ug/mL (4.0-16.0)
== END 2021-03-12 12:50 | DRG 883 ==
LOC: 3N 11:58
PROVIDERS: Internal Medicine; ADMIT Psychiatry & Neurology Psychiatry; ATTEND Psychiatry & Neurology Psychiatry
DX: F63.81 Intermittent explosive disorder (principal); F33.9 Major depressive disorder, recurrent, unspecified; J98.11 Atelectasis; B35.1 Tinea unguium; G89.4 Chronic pain syndrome; E55.9 Vitamin D deficiency, unspecified; R53.1 Weakness; I10 Essential (primary) hypertension; I25.10 Atherosclerotic heart disease of native coronary artery without angina pectoris; R74.8 Abnormal levels of other serum enzymes; G40.909 Epilepsy, unspecified, not intractable, without status epilepticus; Z20.822 Contact with and (suspected) exposure to COVID-19; E03.9 Hypothyroidism, unspecified; F03.90 Unspecified dementia, unspecified severity, without behavioral disturbance, psychotic disturbance, mood disturbance, and anxiety; R07.9 Chest pain, unspecified; K08.89 Other specified disorders of teeth and supporting structures; F41.9 Anxiety disorder, unspecified; L85.3 Xerosis cutis; E78.5 Hyperlipidemia, unspecified; Z72.0 Tobacco use; I69.322 Dysarthria following cerebral infarction; Z88.0 Allergy status to penicillin; Z88.6 Allergy status to analgesic agent; I25.2 Old myocardial infarction; Z82.49 Family history of ischemic heart disease and other diseases of the circulatory system; Z83.3 Family history of diabetes mellitus; Z82.5 Family history of asthma and other chronic lower respiratory diseases; Z79.899 Other long term (current) drug therapy